=== PATIENT | female | born 1935 | race Hispanic/Latino ===

== ENCOUNTER 2018-01-10 07:13 | Inpatient (IN) | payer MEDICARE, OTHER ==
[2018-01-10] MEDS ORDERED: Albuterol-Ipratrop 3 mg / 0.5 (3 ml) UD INH STA ×2 (07:41→11:10)
[2018-01-10 08:06] LABS: BASO % 0.2 % (0.0-2.0); EOS % 0.1 % (0.0-4.0); HEMOGLOBIN 12.2 g/dL (12.0-16.0); LYMPH # 0.3 K/uL (1.0-4.3); LYMPH % 2.1 % (20.0-40.0); MEAN CELL VOLUME 96.2 fl (81.0-99.0); MEAN CORPUSCULAR HEMOGLOBIN 31.3 pg (27.0-31.0); MEAN CORPUSCULAR HGB CONC 32.6 g/dL (33.0-37.0); MEAN PLATELET VOLUME 7.9 fl (7.2-11.7); MONO # 1.3 K/uL (0.0-0.8); MONO % 8.5 % (0.0-10.0); NEUT # 13.9 K/uL (1.8-7.0); NEUT % 89.1 % (50.0-75.0); PLATELET COUNT 152 K/uL (130-400); RBC 3.88 Mil/uL (3.80-5.20); RED CELL DISTRIBUTION WIDTH 13.3 % (11.5-14.5); WHITE BLOOD COUNT 15.6 K/uL (4.8-10.8)
--- NOTE | 2018-01-10 08:13 | ED PDOC ---
HPI: SOB/CHF/COPD Time Seen by Provider: 01/10/18 07:20 Chief Complaint (Nursing): Shortness Of Breath Chief Complaint (Provider): shortness of breath History Per: Patient History/Exam Limitations: no limitations Onset/Duration Of Symptoms: Days Current Symptoms Are (Timing): Still Present Additional History Per: Family (daughter) Additional Complaint(s): 82 year old female with a history of COPD presents to the ER via EMS for an evaluation for shortness of breath onset today morning. As per daughter, patient has been coughing with phlegm for 2 weeks which has worsened since 2 days. She was seen at [facility] for radiation treatment for isolated throat lesion 3 weeks ago. Patient has good appetite and denies receiving flu shot, vomiting or diarrhea. PMD: Dr. Granados Past Medical History Reviewed: Historical Data, Nursing Documentation, Vital Signs Vital Signs: Last Vital Signs Temp 98.4 F 01/10/18 07:33 Pulse 98 H 01/10/18 07:33 Resp 28 H 01/10/18 07:37 BP 148/58 L 01/10/18 07:33 Pulse Ox 92 L 01/10/18 07:33 - Medical History PMH: COPD (USES O2 AT NIGHT), Emphysema, HTN, Hypercholesterolemia Denies: Arthritis, CHF, Hypothyroidism, Chronic Kidney Disease, Rheumatoid Arthritis - Surgical History Surgical History: Endoscopy - Family History Family History: States: Unknown Family Hx - Social History Current smoker - smoking cessation education provided: Yes (sometimes smokes cigarettes ) Alcohol: None Drugs: Denies - Home Medications Home Medications: Ambulatory Orders Medication Instructions Recorded Olmesartan/Hydrochlorothiazide 1 tab PO DAILY 11/05/15 [Benicar Hct 20-12.5 mg Tablet] Albuterol HFA [Ventolin HFA 90 2 puff IH Q6 PRN 01/10/18 mcg/actuation (8 g)] RX: Albuterol/Ipratropium [Duoneb 3 ml IH Q6 PRN 01/10/18 3 mg/0.5 mg (3 ml) UD] RX: Atorvastatin [Lipitor] 10 mg PO DAILY 01/10/18 RX: Meclizine [Antivert] 12.5 mg PO Q12 PRN 01/10/18 RX: Pramipexole [Mirapex] 0.5 mg PO HS 01/10/18 - Allergies Allergies/Adverse Reactions: Allergies Allergy/AdvReac Type Severity Reaction Status Date / Time No Known Allergies Allergy Verified 05/30/15 09:49 Curb-65 Severity Score - CURB-65 Severity Score Confusion: No Bun >19mg/dl (>7mmol/L): No Respiratory Rate greater than/equal to 30: No Systolic BP <90 or Diastolic BP less than/equal 60mmHg: No Age >64: Yes Curb-65 Score: 1 Percentage 30-day mortality: 2.7% Wells Criteria for PE - Wells Criteria for Pulmonary Embolism Clinical Signs and Symptoms of DVT: No P.E is #1 Diagnosis, or Equally Likely: No Heart Rate >100: No Immobilization at least 3 days;Surgery previous 4 weeks: No Previous, objectively diagnosed PE or DVT: No Hemoptysis: No Malignancy w/treatment within 6 months, or palliative: No Total Score: 0 Review of Systems ROS Statement: Except As Marked, All Systems Reviewed And Found Negative Constitutional: Negative for: Fever Cardiovascular: Negative for: Chest Pain Respiratory: Positive for: Cough, Shortness of Breath Gastrointestinal: Negative for: Nausea, Vomiting, Abdominal Pain, Diarrhea Physical Exam - Reviewed Nursing Documentation Reviewed: Yes Vital Signs Reviewed: Yes - Physical Exam Appears: Positive for: Non-toxic, No Acute Distress Head Exam: Positive for: ATRAUMATIC, NORMAL INSPECTION, NORMOCEPHALIC Skin: Positive for: Normal Color, Warm, Dry Eye Exam: Positive for: EOMI, Normal appearance, PERRL ENT: Positive for: Normal ENT Inspection Neck: Positive for: Normal, Painless ROM Cardiovascular/Chest: Positive for: Regular Rate, Rhythm. Negative for: Murmur Respiratory: Positive for: Wheezing (mild), Respiratory Distress (mild). Negative for: Normal Breath Sounds (decreased airflow) Gastrointestinal/Abdominal: Positive for: Normal Exam, Soft. Negative for: Tenderness Back: Positive for: Normal Inspection. Negative for: L CVA Tenderness, R CVA Tenderness Extremity: Positive for: Normal ROM. Negative for: Tenderness, Pedal Edema, Deformity Neurologic/Psych: Positive for: Alert, Oriented (x3), Other (speaking full sentences). Negative for: Motor/Sensory Deficits - Laboratory Results Result Diagrams: 01/10/18 07:44 01/10/18 07:44 - ECG O2 Sat by Pulse Oximetry: 92 (RA) Pulse Ox Interpretation: Normal Medical Decision Making Medical Decision Making: Time: 740 Initial Plan: copd exacerbation, rule out pneumonia and the flu CMP Troponin I CBC w/ Differential Chest Two Views [RAD] Albuterol 3ml SOLU-Medrol 125mg Peak Flow Pre/Post TX Influenza A B Reevaluation Patient will be admitted for COPD exacerbation will cover for possible pneumonia w zithromax and rocephin lactate1.4 Time: 1135 Provider paged hospitalist, Dr. Neal for admission who agreed to admission, and called Dr. Granados - no callback. ----- Scribe Attestation: Documented by Tj Montgomery, acting as a scribe for Ethan Pelayo MD. Provider Scribe Attestation: All medical record entries made by the Scribe were at my direction and personally dictated by me. I have reviewed the chart and agree that the record accurately reflects my personal performance of the history, physical exam, medical decision making, and the department course for this patient. I have also personally directed, reviewed, and agree with the discharge instructions and disposition. Disposition - Clinical Impression Clinical Impression: COPD with acute exacerbation - Patient ED Disposition Is Patient to be Admitted: Yes Counseled Patient/Family Regarding: Studies Performed, Diagnosis - Disposition Disposition Time: 11:25 Condition: STABLE
[2018-01-10 08:21] LABS: ALB/GLOB RATIO 1.2 (1.0-2.1); ALT/SGPT 34 U/L (9-52); AST/SGOT 36 U/L (14-36); BLOOD UREA NITROGEN 19 mg/dl (7-17); CALCIUM 8.8 mg/dL (8.4-10.2); GFR NON-AFRICAN AMERICAN > 60
[2018-01-10 09:46] LABS: LYMPHOCYTE 2 % (20-50); MONOCYTE 6 % (0-10); NEUTROPHIL 92 % (42-75); TOTAL CELLS COUNTED 100
[2018-01-10 09:47] LABS: GIANT PLATELETS PRESENT; PLATELET ESTIMATE NORMAL (NORMAL)
[2018-01-10] MEDS ORDERED: Azithromycin 500 MG in Sodium Chloride 0.9% 250 ML IVPB STA (11:32)
[2018-01-10] MEDS ORDERED: Albuterol-Ipratrop 3 mg / 0.5 (3 ml) UD ONE ×2 (11:40→16:37)
[2018-01-10] MEDS ORDERED: Azithromycin 500 MG IV IVPB ONE (11:40)
[2018-01-10] MEDS ORDERED: Sodium Chloride 3% for Inhalation 4 ML VIAL.NEB IH PRN (12:18)
[2018-01-10] MEDS ORDERED: Albuterol 0.083% Inhal Sol (2.5 mg/3 mL) UD INH PRN (12:23)
--- NOTE | 2018-01-10 12:27 | RAD ---
Date of service: 01/10/2018 HISTORY: sob rule out pneumonia COMPARISON: 06/05/2015. TECHNIQUE: Chest PA and lateral FINDINGS: LUNGS: Pulmonary vascular congestion/interstitial findings. Hyperinflation, manifestations of COPD. No active pulmonary disease. PLEURA: No significant pleural effusion identified. No pneumothorax apparent. CARDIOVASCULAR: Atherosclerotic calcifications identified primarily aortic arch. Normal cardiac size. OSSEOUS STRUCTURES: No significant abnormalities. VISUALIZED UPPER ABDOMEN: Normal. OTHER FINDINGS: None. IMPRESSION: Pulmonary vascular congestion. No focal/discrete infiltrates.
[2018-01-10] MEDS ORDERED: HYDROCHLOROTHIAZIDE PO SCH (12:30)
[2018-01-10] MEDS ORDERED: OLMESARTAN PO SCH (12:30)
[2018-01-10] MEDS ORDERED: [UNRECOGNIZED DRUG - OTHER] PO SCH (12:30)
[2018-01-10 12:32] LABS: ABG ALLEN TEST YES; ARTERIAL BLOOD GAS HCO3 29.8 mmol/L (21-28); ARTERIAL BLOOD GAS HEMOGLOBIN 12.5 g/dL (11.7-17.4); ARTERIAL BLOOD GAS O2 CAPACITY 16.8 mL/dL (16-24); ARTERIAL BLOOD GAS O2 CONTENT 16.4 ML/dL (15-23); ARTERIAL BLOOD GAS O2 SAT 97.8 % (95-98); ARTERIAL BLOOD GAS PCO2 65 mm/Hg (35-45); ARTERIAL BLOOD GAS PH 7.33 (7.35-7.45); ARTERIAL BLOOD GAS PO2 75 mm/Hg (80-100); ARTERIAL BLOOD GAS TCO2 36.3 mmol/L (22-28)
[2018-01-10] MEDS ORDERED: cefTRIAXone (Rocephin) 1 gm Inj ONE (12:59)
[2018-01-10 13:45] LABS: VENOUS BLOOD GAS BASE EXCESS 4.3 mmol/L (0.0-2.0); VENOUS BLOOD GAS PCO2 71 mmHg (40-60); VENOUS BLOOD GAS PO2 52 mm/Hg (30-55); VENOUS BLOOD PH 7.28 (7.32-7.43)
--- NOTE | 2018-01-10 13:46 | CARD ---
APPROVED REPORT Date of service: 01/10/2018 EKG Measurement Heart [id number] <Conclusion> Sinus rhythm with premature atrial complexes Nonspecific ST abnormality Abnormal ECG
[2018-01-10] MEDS ORDERED: Pantoprazole 40 mg EC Tab PO ONE (14:14)
--- NOTE | 2018-01-10 14:16 | CP.PCM.HP ---
<Gilda Arredondo - Last Filed: 01/10/18 15:05> History of Present Illness - History of Present Illness History of Present Illness: 82 y/o female w/ pmhx of COPD on 2L NC at home and HTN c/o worsening shortness of breath persisting for 2 days. She also c/o productive cough w/ yellow sputum persisting for 3 weeks, which worsened in the past two days. She denies chest pain, fevers, bloody sputum, night sweats, chills, sore throat, n/v/c/d. 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 PMD: Dr. 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 Denies having sick contacts. Denies recent travel outside [place] Allergies: NKDA HomeRx: Duoneb 3.0mg/0.5mg PRN Q6 NEB, Albuterol 90mcg IH Q6 PRN, Meclizine 12.5mg PO PRN, Benicar HCT 20/12.5 mg PO QD, Pramipexole 0.5mg PO QD, 2L Oxygen Nasal Cannula Code Status: Full Code Next of Kin: Nayely Irby, daughter, Present on Admission - Present on Admission Any Indicators Present on Admission: No History of DVT/PE: No History of Uncontrolled Diabetes: No Urinary Catheter: No Decubitus Ulcer Present: No Review of Systems - Constitutional Constitutional: absent: Fatigue, Fever, Night Sweats - EENT Eyes: absent: Change in Vision Ears: Disequilibrium. absent: Dizziness Nose/Mouth/Throat: Nasal Discharge, Hoarsness. absent: Nasal Congestion - Cardiovascular Cardiovascular: absent: Chest Pain, Dyspnea, Leg Edema, Palpitations - Respiratory Respiratory: Cough, Wheezing. absent: Hemoptysis - Gastrointestinal Gastrointestinal: absent: Abdominal Pain, Constipation, Diarrhea, Nausea, Vo miting - Genitourinary Genitourinary: absent: Dysuria - Musculoskeletal Musculoskeletal: absent: Numbness, Tingling Past Patient History - Past Medical History & Family History Past Medical History?: Yes - Past Social History Smoking Status: Current Some Days Smoker Alcohol: None Drugs: Denies - CARDIAC Hx Congestive Heart Failure: No Hx Hypercholesterolemia: Yes Hx Hypertension: Yes - PULMONARY Hx Chronic Obstructive Pulmonary Disease (COPD): Yes (USES O2 AT NIGHT) Hx Emphysema: Yes - NEUROLOGICAL HX Cerebrovascular Accident: No - HEENT Hx HEENT Problems: No - RENAL Hx Chronic Kidney Disease: No - ENDOCRINE/METABOLIC Hx Hypothyroidism: No - HEMATOLOGICAL/ONCOLOGICAL Hx Blood Disorders: No - INTEGUMENTARY Hx Dermatological Problems: No - MUSCULOSKELETAL/RHEUMATOLOGICAL Hx Arthritis: No Hx Rheumatoid Arthritis: No - GASTROINTESTINAL Hx Gastrointestinal Disorders: Yes Hx Ulcer: Yes - GENITOURINARY/GYNECOLOGICAL Hx Genitourinary Disorders: No - PSYCHIATRIC Hx Emotional Abuse: No Hx Physical Abuse: No Hx Substance Use: No - SURGICAL HISTORY Hx Surgeries: Yes - ANESTHESIA Hx Anesthesia: No Meds Allergies/Adverse Reactions: Allergies Allergy/AdvReac Type Severity Reaction Status Date / Time No Known Allergies Allergy Verified 05/30/15 09:49 Physical Exam - Constitutional Appears: No Acute Distress - Eye Exam Eye Exam: PERRL. absent: Conjunctival injection - ENT Exam ENT Exam: Mucous Membranes Moist - Respiratory Exam Respiratory Exam: Decreased Breath Sounds, Rhonchi. absent: Wheezes - Cardiovascular Exam Cardiovascular Exam: REGULAR RHYTHM, +S1, +S2 - GI/Abdominal Exam GI & Abdominal Exam: Normal Bowel Sounds, Soft. absent: Tenderness - Extremities Exam Extremities exam: Positive for: normal inspection. Negative for: calf tenderness, pedal edema, tenderness - Neurological Exam Neurological exam: Alert, Oriented x3 - Psychiatric Exam Psychiatric exam: Normal Affect - Skin Skin Exam: Dry, Normal Color, Warm Results - Vital Signs Recent Vital Signs: Last Vital Signs Temp 97.6 F 01/10/18 11:29 Pulse 88 01/10/18 11:29 Resp 20 01/10/18 11:29 BP 129/62 01/10/18 11:29 Pulse Ox 92 L 01/10/18 12:14 - Labs Result Diagrams: 01/10/18 07:44 01/10/18 07:44 Labs: Laboratory Results - last 24 hr 01/10/18 01/10/18 01/10/18 07:44 07:44 07:44 WBC 15.6 H RBC 3.88 Hgb 12.2 Hct 37.4 MCV 96.2 D MCH 31.3 H MCHC 32.6 L RDW 13.3 Plt Count 152 MPV 7.9 Neut % (Auto) 89.1 H Lymph % (Auto) 2.1 L Austin % (Auto) 8.5 Eos % (Auto) 0.1 Baso % (Auto) 0.2 Neut # (Auto) 13.9 H Lymph # (Auto) 0.3 L Austin # (Auto) 1.3 H Eos # (Auto) 0.0 Baso # (Auto) 0.0 Neutrophils % (Manual) 92 H Lymphocytes % (Manual) 2 L Monocytes % (Manual) 6 Platelet Estimate Normal Giant Platelets Present RBC Morphology Normal pCO2 pO2 HCO3 ABG pH ABG Total CO2 ABG O2 Saturation ABG O2 Content ABG Base Excess ABG Hemoglobin ABG Carboxyhemoglobin POC ABG HHb (Measured) ABG Methemoglobin ABG O2 Capacity Kermit Test VBG pH VBG pCO2 VBG HCO3 VBG Total CO2 VBG O2 Sat (Calc) VBG Base Excess VBG Potassium A-a O2 Difference Hgb O2 Saturation Glucose Lactate FiO2 Blood Gas Comments Crit Value Called To Crit Value Called By Crit Value Read Back Blood Gas Notified Time Sodium 132 Potassium 3.8 Chloride 91 L Carbon Dioxide 30 Anion Gap 15 BUN 19 H Creatinine 0.6 L Est GFR ( Amer) > 60 Est GFR (Non-Af Amer) > 60 Random Glucose 142 H Calcium 8.8 Total Bilirubin 0.5 AST 36 ALT 34 Alkaline Phosphatase 79 Troponin I 0.0130 Total Protein 7.3 Albumin 4.0 Globulin 3.3 Albumin/Globulin Ratio 1.2 Venous Blood Potassium Influenza Typ A,B (EIA) Negative for flu a/b 01/10/18 01/10/18 12:21 13:40 WBC RBC Hgb Hct MCV MCH MCHC RDW Plt Count MPV Neut % (Auto) Lymph % (Auto) Austin % (Auto) Eos % (Auto) Baso % (Auto) Neut # (Auto) Lymph # (Auto) Austin # (Auto) Eos # (Auto) Baso # (Auto) Neutrophils % (Manual) Lymphocytes % (Manual) Monocytes % (Manual) Platelet Estimate Giant Platelets RBC Morphology pCO2 65 H pO2 75 L 52 HCO3 29.8 H ABG pH 7.33 L ABG Total CO2 36.3 H ABG O2 Saturation 97.8 ABG O2 Content 16.4 ABG Base Excess 6.4 H ABG Hemoglobin 12.5 ABG Carboxyhemoglobin 3.0 H POC ABG HHb (Measured) 2.1 ABG Methemoglobin 1.8 ABG O2 Capacity 16.8 Kermit Test Yes VBG pH 7.28 L VBG pCO2 71 H* VBG HCO3 27.9 VBG Total CO2 35.6 H VBG O2 Sat (Calc) 90.2 H VBG Base Excess 4.3 H VBG Potassium 4.0 A-a O2 Difference 58.0 Hgb O2 Saturation 93.0 L Glucose 226 H Lactate 1.4 FiO2 30.0 21.0 Blood Gas Comments 2l/m nc Crit Value Called To Rn. gurwinder cormier Crit Value Called By 23 Crit Value Read Back N Y Blood Gas Notified Time 1345 Sodium 129.0 L Potassium Chloride 92.0 L Carbon Dioxide Anion Gap BUN Creatinine Est GFR ( Amer) Est GFR (Non-Af Amer) Random Glucose Calcium Total Bilirubin AST ALT Alkaline Phosphatase Troponin I Total Protein Albumin Globulin Albumin/Globulin Ratio Venous Blood Potassium 4.0 Influenza Typ A,B (EIA) Assessment & Plan - Assessment and Plan (Free Text) Assessment: 82 y/o female w/ pmhx of COPD on 2L NC at home and HTN admitted for COPD exacerb ation. COPD Exacerbation Admit to telemetry PC02 65, pO2 75, ABG pH 7.33 ABG C02 36.3 on admission RR: 28, SpO2 94 on admission CXR: Pulmonary vascular congestion, no infiltrates. Hyperinflation, manifestations of COPD. No active pulmonary disease. s/p Solu-Medrol 125mg PO x 1 in the ER Start Albuterol 2.5mg INH RQ4 PRN, Duoneb 3mg/0.5mg Q6, SoluMedrol 40mg IVP Q6 2L O2 Nasal Cannula NaCl- 4mL IH PRN ECHO and pro-BNP ordered to r/o CHF Pulmo consulted, appreciate recs Leukocytosis WBC 15.6 Patient is afebrile Negative Influenza A/B ag Blood culture and sputum cultures ordered Start Azithromycin 500mg IV QD and Ceftriazone 1gm IVPB QD Follow CBC in AM Hypertension Chronic, controlled Losartan 50mg PO QD and HCTZ 12.5mg PO QD DVT prophylaxis: Lovenox 40mg SC QD Diet Heart Healthy Case discussed w/ attending, Dr. Neal. - Date & Time Date: 01/10/18 Time: 14:00 <Gianfranco Neal D - Last Filed: 01/10/18 20:10> Results - Vital Signs Recent Vital Signs: Last Vital Signs Temp 98 F 01/10/18 18:25 Pulse 84 01/10/18 19:05 Resp 18 01/10/18 18:25 BP 137/56 L 01/10/18 18:25 Pulse Ox 93 L 01/10/18 18:25 - Labs Result Diagrams: 01/10/18 07:44 01/10/18 07:44 Labs: Laboratory Results - last 24 hr 01/10/18 01/10/18 01/10/18 07:44 07:44 07:44 WBC 15.6 H RBC 3.88 Hgb 12.2 Hct 37.4 MCV 96.2 D MCH 31.3 H MCHC 32.6 L RDW 13.3 Plt Count 152 MPV 7.9 Neut % (Auto) 89.1 H Lymph % (Auto) 2.1 L Austin % (Auto) 8.5 Eos % (Auto) 0.1 Baso % (Auto) 0.2 Neut # (Auto) 13.9 H Lymph # (Auto) 0.3 L Austin # (Auto) 1.3 H Eos # (Auto) 0.0 Baso # (Auto) 0.0 Neutrophils % (Manual) 92 H Lymphocytes % (Manual) 2 L Monocytes % (Manual) 6 Platelet Estimate Normal Giant Platelets Present RBC Morphology Normal pCO2 pO2 HCO3 ABG pH ABG Total CO2 ABG O2 Saturation ABG O2 Content ABG Base Excess ABG Hemoglobin ABG Carboxyhemoglobin POC ABG HHb (Measured) ABG Methemoglobin ABG O2 Capacity Kermit Test VBG pH VBG pCO2 VBG HCO3 VBG Total CO2 VBG O2 Sat (Calc) VBG Base Excess VBG Potassium A-a O2 Difference Hgb O2 Saturation Glucose Lactate FiO2 Blood Gas Comments Crit Value Called To Crit Value Called By Crit Value Read Back Blood Gas Notified Time Sodium 132 Potassium 3.8 Chloride 91 L Carbon Dioxide 30 Anion Gap 15 BUN 19 H Creatinine 0.6 L Est GFR ( Amer) > 60 Est GFR (Non-Af Amer) > 60 Random Glucose 142 H Calcium 8.8 Total Bilirubin 0.5 AST 36 ALT 34 Alkaline Phosphatase 79 Troponin I 0.0130 NT-Pro-B Natriuret Pep Total Protein 7.3 Albumin 4.0 Globulin 3.3 Albumin/Globulin Ratio 1.2 Venous Blood Potassium Influenza Typ A,B (EIA) Negative for flu a/b 01/10/18 01/10/18 01/10/18 12:21 13:40 14:30 WBC RBC Hgb Hct MCV MCH MCHC RDW Plt Count MPV Neut % (Auto) Lymph % (Auto) Austin % (Auto) Eos % (Auto) Baso % (Auto) Neut # (Auto) Lymph # (Auto) Austin # (Auto) Eos # (Auto) Baso # (Auto) Neutrophils % (Manual) Lymphocytes % (Manual) Monocytes % (Manual) Platelet Estimate Giant Platelets RBC Morphology pCO2 65 H pO2 75 L 52 HCO3 29.8 H ABG pH 7.33 L ABG Total CO2 36.3 H ABG O2 Saturation 97.8 ABG O2 Content 16.4 ABG Base Excess 6.4 H ABG Hemoglobin 12.5 ABG Carboxyhemoglobin 3.0 H POC ABG HHb (Measured) 2.1 ABG Methemoglobin 1.8 ABG O2 Capacity 16.8 Kermit Test Yes VBG pH 7.28 L VBG pCO2 71 H* VBG HCO3 27.9 VBG Total CO2 35.6 H VBG O2 Sat (Calc) 90.2 H VBG Base Excess 4.3 H VBG Potassium 4.0 A-a O2 Difference 58.0 Hgb O2 Saturation 93.0 L Glucose 226 H Lactate 1.4 FiO2 30.0 21.0 Blood Gas Comments 2l/m nc Crit Value Called To Rn. gurwinder cormier Crit Value Called By 23 Crit Value Read Back N Y Blood Gas Notified Time 1345 Sodium 129.0 L Potassium Chloride 92.0 L Carbon Dioxide Anion Gap BUN Creatinine Est GFR ( Amer) Est GFR (Non-Af Amer) Random Glucose Calcium Total Bilirubin AST ALT Alkaline Phosphatase Troponin I NT-Pro-B Natriuret Pep 355 Total Protein Albumin Globulin Albumin/Globulin Ratio Venous Blood Potassium 4.0 Influenza Typ A,B (EIA) Attending/Attestation - Attestation I have personally seen and examined this patient.: Yes I have fully participated in the care of the patient.: Yes I have reviewed all pertinent clinical information: Yes Notes (Text): 01/10/18 20:09 Patient seen and examined with resident. Case discussed and agreed with assessment and plan of management.
[2018-01-10] MEDS: Pantoprazole 40 mg EC Tab PO SCH (14:26)
[2018-01-10] MEDS ORDERED: methylPREDNISolone 40 MG in Sodium Chloride 0.9% 50 ML IVPB SCH (16:00)
[2018-01-10] MEDS ORDERED: Albuterol-Ipratrop 3 mg / 0.5 (3 ml) UD IH SCH (16:00)
[2018-01-10] MEDS ORDERED: MethylPREDNISolone 40 mg Vial ONE (16:38)
[2018-01-10] MEDS: MethylPREDNISolone 40 mg Vial IVP SCH ×2 (16:40→23:28)
[2018-01-11] MEDS: Albuterol-Ipratrop 3 mg / 0.5 (3 ml) UD IH SCH ×5 (01:00→19:00)
[2018-01-11] MEDS: MethylPREDNISolone 40 mg Vial IVP SCH ×4 (03:29→21:21)
[2018-01-11 05:43] LABS: HEMOGLOBIN 11.3 g/dL (12.0-16.0); LYMPH # 0.3 K/uL (1.0-4.3); LYMPH % 2.3 % (20.0-40.0); MEAN CELL VOLUME 95.7 fl (81.0-99.0); MEAN CORPUSCULAR HEMOGLOBIN 31.7 pg (27.0-31.0); MEAN CORPUSCULAR HGB CONC 33.1 g/dL (33.0-37.0); MONO # 0.4 K/uL (0.0-0.8); MONO % 3.3 % (0.0-10.0); NEUT # 10.4 K/uL (1.8-7.0); NEUT % 94.4 % (50.0-75.0); PLATELET COUNT 158 K/uL (130-400); RBC 3.56 Mil/uL (3.80-5.20); RED CELL DISTRIBUTION WIDTH 13.3 % (11.5-14.5)
[2018-01-11 05:54] LABS: BLOOD UREA NITROGEN 21 mg/dl (7-17); CALCIUM 8.6 mg/dL (8.4-10.2); GFR NON-AFRICAN AMERICAN > 60
--- NOTE | 2018-01-11 06:56 | CP.PCM.PN ---
<ArnulfoGilda - Last Filed: 01/11/18 11:20> Subjective - Date & Time of Evaluation Date of Evaluation: 01/11/18 Time of Evaluation: 06:56 - Subjective Subjective: Patient seen and examined at bedside, sitting up, breathing comfortably on O2 NC. She denies SOB or any acute events over night. She continues to report productive cough with yellow sputum. Patient's charts, labs, and nurse notes reviewed. Objective - Vital Signs/Intake and Output Vital Signs (last 24 hours): Temp Pulse Resp BP Pulse Ox 98.1 F 77 20 113/62 94 L 01/11/18 05:05 01/11/18 05:05 01/11/18 05:05 01/11/18 05:05 01/11/18 05:05 Intake and Output: 01/10/18 01/11/18 18:59 06:59 Intake Total 1260 Balance 1260 - Medications Medications: Current Medications Acetaminophen (Tylenol 325mg Tab) 650 mg PO Q6 PRN PRN Reason: Other Last Admin: 01/10/18 23:20 Dose: 650 mg Albuterol Sulfate (Albuterol 0.083% Inhal Deborah (2.5 Mg/3 Ml) Ud) 2.5 mg INH RQ4 PRN PRN Reason: Shortness of Breath Albuterol/Ipratropium (Duoneb 3 Mg/0.5 Mg (3 Ml) Ud) 3 ml IH RQ6 DURAN Last Admin: 01/11/18 01:00 Dose: 3 ml Atorvastatin Calcium (Lipitor) 10 mg PO DAILY DURAN Last Admin: 01/10/18 14:26 Dose: 10 mg Docusate Sodium (Colace) 100 mg PO BID PRN PRN Reason: Constipation Enoxaparin Sodium (Lovenox) 40 mg SC DAILY DURAN; Protocol Hydrochlorothiazide (Microzide) 12.5 mg PO DAILY DURAN Last Admin: 01/10/18 14:25 Dose: 12.5 mg Ceftriaxone Sodium 1 gm/ (Sodium Chloride) 100 mls @ 100 mls/hr IVPB DAILY DURAN; Protocol Azithromycin 500 mg/ Sodium (Chloride) 250 mls @ 250 mls/hr IVPB DAILY DURAN; Protocol Losartan Potassium (Cozaar) 50 mg PO DAILY DURAN Last Admin: 01/10/18 14:26 Dose: 50 mg Meclizine HCl (Antivert) 12.5 mg PO Q12 PRN PRN Reason: Dizziness Methylprednisolone (Solu-Medrol) 40 mg IVP Q6 [facility] Last Admin: 01/11/18 03:29 Dose: 40 mg Pantoprazole Sodium (Protonix Ec Tab) 40 mg PO DAILY [facility] Last Admin: 01/10/18 14:26 Dose: 40 mg Pramipexole Dihydrochloride (Mirapex) 0.5 mg PO HS [facility] - Labs Labs: 01/11/18 04:25 01/11/18 04:25 - Constitutional Appears: No Acute Distress - Respiratory Exam Respiratory Exam: Decreased Breath Sounds, Prolonged Expiratory Phase, Rales, Rhonchi. absent: Accessory Muscle Use - Cardiovascular Exam Cardiovascular Exam: REGULAR RHYTHM, +S1, +S2 - GI/Abdominal Exam GI & Abdominal Exam: Soft. absent: Tenderness - Extremities Exam Extremities Exam: Normal Inspection. absent: Calf Tenderness, Pedal Edema - Psychiatric Exam Psychiatric exam: Normal Affect - Skin Skin Exam: Dry, Intact, Warm Assessment and Plan - Assessment and Plan (Free Text) Assessment: 82 y/o female w/ pmhx of COPD (on 2L NC at home at night) and HTN admitted for COPD exacerbation. She was given Solu-Medrol 125mg PO x 1 in the ER, and started on 2-3L O2 NC, Albuterol 2.5mg INH RQ4 PRN, Duoneb 3mg/0.5mg Q6, SoluMedrol 40mg IVP Q6 on the floor. CXR: Pulmonary vascular congestion, no infiltrates. Hyperinflation, manifestations of COPD. No active pulmonary disease. She c/o productive cough, and was found to have leukocytosis. She was started on Azithromycin 500mg IV QD and Ceftriazone 1gm IVPB QD. COPD Exacerbation PC02 65, pO2 75, ABG pH 7.33 ABG C02 36.3 on admission RR: 28, SpO2 94 on admission CXR: Pulmonary vascular congestion, no infiltrates. Hyperinflation, manifestations of COPD. No active pulmonary disease. s/p Solu-Medrol 125mg PO x 1 in the ER Cont w/ Albuterol 2.5mg INH RQ4 PRN, Duoneb 3mg/0.5mg Q6, SoluMedrol 40mg IVP Q6 2L O2 Nasal Cannula NaCl- 4mL IH PRN ECHO 01/10/2019 LVEF 60-65% pro-BNP wnl Pulmo consulted, appreciate recs; discussed case w/ Dr. Granados Leukocytosis improving WBC 15.6 -->11.1 Patient is afebrile Negative Influenza A/B ag Blood culture and sputum cultures ordered Continue Azithromycin 500mg IV QD and Ceftriazone 1gm IVPB QD Follow CBC in AM Hypertension Chronic, controlled Losartan 50mg PO QD and HCTZ 12.5mg PO QD DVT prophylaxis: Lovenox 40mg SC QD Diet Heart Healthy <Lexi Benedict - Last Filed: 01/11/18 16:57> Objective - Vital Signs/Intake and Output Vital Signs (last 24 hours): Temp Pulse Resp BP Pulse Ox 97.7 F 77 20 122/64 94 L 01/11/18 15:56 01/11/18 15:56 01/11/18 15:56 01/11/18 15:56 01/11/18 15:56 Intake and Output: 01/11/18 01/11/18 06:59 18:59 Intake Total 1260 Balance 1260 - Medications Medications: Current Medications Acetaminophen (Tylenol 325mg Tab) 650 mg PO Q6 PRN PRN Reason: Other Last Admin: 01/10/18 23:20 Dose: 650 mg Albuterol Sulfate (Albuterol 0.083% Inhal Deborah (2.5 Mg/3 Ml) Ud) 2.5 mg INH RQ4 PRN PRN Reason: Shortness of Breath Albuterol/Ipratropium (Duoneb 3 Mg/0.5 Mg (3 Ml) Ud) 3 ml IH RQ6 DURAN Last Admin: 01/11/18 13:06 Dose: 3 ml Atorvastatin Calcium (Lipitor) 10 mg PO DAILY DURAN Last Admin: 01/11/18 09:33 Dose: 10 mg Docusate Sodium (Colace) 100 mg PO BID PRN PRN Reason: Constipation Enoxaparin Sodium (Lovenox) 40 mg SC DAILY DURAN; Protocol Last Admin: 01/11/18 09:34 Dose: 40 mg Hydrochlorothiazide (Microzide) 12.5 mg PO DAILY DURAN Last Admin: 01/11/18 09:33 Dose: 12.5 mg Ceftriaxone Sodium 1 gm/ (Sodium Chloride) 100 mls @ 100 mls/hr IVPB DAILY DURAN; Protocol Last Admin: 01/11/18 09:32 Dose: 100 mls/hr Azithromycin 500 mg/ Sodium (Chloride) 250 mls @ 250 mls/hr IVPB DAILY DURAN; Protocol Last Admin: 01/11/18 09:32 Dose: 250 mls/hr Losartan Potassium (Cozaar) 50 mg PO DAILY DURAN Last Admin: 01/11/18 09:33 Dose: 50 mg Meclizine HCl (Antivert) 12.5 mg PO Q12 PRN PRN Reason: Dizziness Methylprednisolone (Solu-Medrol) 40 mg IVP Q6 DURAN Last Admin: 01/11/18 12:39 Dose: 40 mg Pantoprazole Sodium (Protonix Ec Tab) 40 mg PO DAILY DURAN Last Admin: 01/11/18 09:32 Dose: 40 mg Pramipexole Dihydrochloride (Mirapex) 0.5 mg PO HS DURAN - Labs Labs: 01/11/18 04:25 01/11/18 04:25 Attending/Attestation - Attestation I have personally seen and examined this patient.: Yes I have fully participated in the care of the patient.: Yes I have reviewed all pertinent clinical information, including history, physical exam and plan: Yes Notes (Text): COPD exacerbation Acute Bronchitis vs Early Pneumonia HTN - Pt still with SOB but better, decreased BS min rales right base - Pt came with leukocytosis and cough for the past 1 wk, continue IV ceftriaxone and Azithro - changed Albuterol inhaler to Duoneb RTC and prn - taper Solumedrol in am to 60 mg q 8 - cont HCTZ
--- NOTE | 2018-01-11 08:41 | CARD ---
APPROVED REPORT Date of service: 01/10/2018 EXAM: Two-dimensional and M-mode echocardiogram with Doppler and color Doppler. Other Information Quality : AverageRhythm : NSR INDICATION COPD Pulmonary Congestion 2D DIMENSIONS IVSd0.84 (0.7-1.1cm)LVDd3.77 (3.9-5.9cm) LVOT Diameter2.07 (1.8-2.4cm)PWd0.77 (0.7-1.1cm) IVSs1.08 (0.8-1.2cm)LVDs2.62 (2.5-4.0cm) FS (%) 30.6 %PWs0.91 (0.8-1.2cm) M-Mode DIMENSIONS Left Atrium (MM)3.09 (2.5-4.0cm)IVSd0.97 (0.7-1.1cm) Aortic Root2.40 (2.2-3.7cm)LVDd4.85 (4.0-5.6cm) Aortic Cusp Exc.1.49 (1.5-2.0cm)PWd0.88 (0.7-1.1cm) IVSs0.94 cmFS (%) 26 % LVDs3.58 (2.0-3.8cm)PWs1.02 cm Aortic Valve AoV Peak Ypcbfutd318.3cm/sAoV VTI50.5cmAO Peak GR.25mmHg LVOT Peak Fkajyxng372.3cm/sLVOT VTI27.61cmAO Mean GR.13mmHg VALERY (VMAX)0.93ig3CQC (VTI)1.17cm2 Mitral Valve MV E Hmkzsyws683.0cm/sMV DECEL [id number] A Qmczjqnl317.2cm/s MV ZAR36vdI/A ratio0.9MVA (PHT)2.73cm2 TDI Lateral E' Peak V9.29cm/sMedial E' Peak V5.62cm/sE/Lateral E'10.8 E/Medial E'17.8 Tricuspid Valve TR Peak Xuczrhrd649tr/sRAP PKVFFXZL41hjGjAS Peak Gr.44mmHg WWJU12dnMl LEFT VENTRICLE The left ventricle is normal size. There is normal left ventricular wall thickness. The left ventricular function is normal. LVEF is 60-65%. There was a mild flattening of IV septum, indicating elevated RV pressures. There is normal LV segmental wall motion. Transmitral Doppler flow pattern is Grade I-abnormal relaxation pattern. RIGHT VENTRICLE The right ventricle is normal size. The right ventricle is mildly hypertrophied. The right ventricular systolic function is normal. ATRIA The left atrium size is normal. The right atrium is mildly dilated. AORTIC VALVE The aortic valve is mildly thickened. No aortic regurgitation is present. There was a mild pressure gradient of 25 mmHg and mean pressure gradient of 12 mmHg. MITRAL VALVE The mitral valve is normal in structure. There is no evidence of mitral valve prolapse. There is no mitral valve stenosis. Mitral regurgitation is trace. TRICUSPID VALVE The tricuspid valve is normal in structure. There is mild to moderate tricuspid regurgitation. Right ventricular systolic pressure is estimated at 56 mmHg. There is moderate-severe pulmonary hypertension. PULMONIC VALVE The pulmonary valve is normal in structure. There is no pulmonic valvular regurgitation. GREAT VESSELS The aortic root is normal in size. The IVC is dilated. PERICARDIAL EFFUSION The pericardium appears normal. <Conclusion> The left ventricle is normal size. LVEF is 60-65%. There is normal LV segmental wall motion. Transmitral Doppler flow pattern is Grade I-abnormal relaxation pattern. The right ventricle is mildly hypertrophied. The right ventricular systolic function is normal. The right atrium is mildly dilated. The aortic valve is mildly thickened. There was a mild pressure gradient of 25 mmHg and mean pressure gradient of 12 mmHg. There is moderate-severe pulmonary hypertension.
[2018-01-11] MEDS: Pantoprazole 40 mg EC Tab PO SCH (09:32)
[2018-01-11] MEDS: Azithromycin 500 MG in Sodium Chloride 0.9% 250 ML IVPB SCH (09:32)
[2018-01-11] MEDS: Enoxaparin 40 mg Syringe SC SCH (09:34)
--- NOTE | 2018-01-11 10:21 | CP.PCM.CON ---
Past Patient History - Past Medical History & Family History Past Medical History?: Yes - Past Social History Smoking Status: Current Some Days Smoker - CARDIAC Hx Cardiac Disorders: Yes - PULMONARY Hx Respiratory Disorders: Yes - NEUROLOGICAL HX Cerebrovascular Accident: No - HEENT Hx HEENT Problems: No - RENAL Hx Chronic Kidney Disease: No - ENDOCRINE/METABOLIC Hx Hypothyroidism: No - HEMATOLOGICAL/ONCOLOGICAL Hx Blood Disorders: No - INTEGUMENTARY Hx Dermatological Problems: No - MUSCULOSKELETAL/RHEUMATOLOGICAL Hx Arthritis: No Hx Falls: No Hx Rheumatoid Arthritis: No - GASTROINTESTINAL Hx Gastrointestinal Disorders: Yes Hx Ulcer: Yes - GENITOURINARY/GYNECOLOGICAL Hx Genitourinary Disorders: No - PSYCHIATRIC Hx Emotional Abuse: No Hx Physical Abuse: No Hx Substance Use: No - SURGICAL HISTORY Hx Surgeries: Yes - ANESTHESIA Hx Anesthesia: No Meds Allergies/Adverse Reactions: Allergies Allergy/AdvReac Type Severity Reaction Status Date / Time No Known Allergies Allergy Verified 05/30/15 09:49 - Medications Medications: Current Medications Acetaminophen (Tylenol 325mg Tab) 650 mg PO Q6 PRN PRN Reason: Other Last Admin: 01/10/18 23:20 Dose: 650 mg Albuterol Sulfate (Albuterol 0.083% Inhal Deborah (2.5 Mg/3 Ml) Ud) 2.5 mg INH RQ4 PRN PRN Reason: Shortness of Breath Albuterol/Ipratropium (Duoneb 3 Mg/0.5 Mg (3 Ml) Ud) 3 ml IH RQ6 [facility] Last Admin: 01/11/18 07:38 Dose: 3 ml Atorvastatin Calcium (Lipitor) 10 mg PO DAILY [facility] Last Admin: 01/11/18 09:33 Dose: 10 mg Docusate Sodium (Colace) 100 mg PO BID PRN PRN Reason: Constipation Enoxaparin Sodium (Lovenox) 40 mg SC DAILY [facility]; Protocol Last Admin: 01/11/18 09:34 Dose: 40 mg Hydrochlorothiazide (Microzide) 12.5 mg PO DAILY [facility] Last Admin: 01/11/18 09:33 Dose: 12.5 mg Ceftriaxone Sodium 1 gm/ (Sodium Chloride) 100 mls @ 100 mls/hr IVPB DAILY [facility]; Protocol Last Admin: 01/11/18 09:32 Dose: 100 mls/hr Azithromycin 500 mg/ Sodium (Chloride) 250 mls @ 250 mls/hr IVPB DAILY [facility]; Protocol Last Admin: 01/11/18 09:32 Dose: 250 mls/hr Losartan Potassium (Cozaar) 50 mg PO DAILY [facility] Last Admin: 01/11/18 09:33 Dose: 50 mg Meclizine HCl (Antivert) 12.5 mg PO Q12 PRN PRN Reason: Dizziness Methylprednisolone (Solu-Medrol) 40 mg IVP Q6 [facility] Last Admin: 01/11/18 03:29 Dose: 40 mg Pantoprazole Sodium (Protonix Ec Tab) 40 mg PO DAILY [facility] Last Admin: 01/11/18 09:32 Dose: 40 mg Pramipexole Dihydrochloride (Mirapex) 0.5 mg PO HS [facility] Results - Vital Signs Recent Vital Signs: Last Vital Signs Temp 98.2 F 01/11/18 08:26 Pulse 82 01/11/18 09:33 Resp 18 01/11/18 08:26 BP 106/54 L 01/11/18 09:33 Pulse Ox 96 01/11/18 08:26 - Labs Result Diagrams: 01/11/18 04:25 01/11/18 04:25 Labs: Laboratory Results - last 24 hr 01/10/18 01/10/18 01/10/18 12:21 13:40 14:30 WBC RBC Hgb Hct MCV MCH MCHC RDW Plt Count MPV Neut % (Auto) Lymph % (Auto) Steele % (Auto) Eos % (Auto) Baso % (Auto) Neut # (Auto) Lymph # (Auto) Steele # (Auto) Eos # (Auto) Baso # (Auto) pCO2 65 H pO2 75 L 52 HCO3 29.8 H ABG pH 7.33 L ABG Total CO2 36.3 H ABG O2 Saturation 97.8 ABG O2 Content 16.4 ABG Base Excess 6.4 H ABG Hemoglobin 12.5 ABG Carboxyhemoglobin 3.0 H POC ABG HHb (Measured) 2.1 ABG Methemoglobin 1.8 ABG O2 Capacity 16.8 Kermit Test Yes VBG pH 7.28 L VBG pCO2 71 H* VBG HCO3 27.9 VBG Total CO2 35.6 H VBG O2 Sat (Calc) 90.2 H VBG Base Excess 4.3 H VBG Potassium 4.0 A-a O2 Difference 58.0 Hgb O2 Saturation 93.0 L Sodium 129.0 L Chloride 92.0 L Glucose 226 H Lactate 1.4 FiO2 30.0 21.0 Blood Gas Comments 2l/m nc Crit Value Called To Diana. gurwinder cormier Crit Value Called By 23 Crit Value Read Back N Y Blood Gas Notified Time 1345 Potassium Carbon Dioxide Anion Gap BUN Creatinine Est GFR ( Amer) Est GFR (Non-Af Amer) Random Glucose Calcium NT-Pro-B Natriuret Pep 355 Venous Blood Potassium 4.0 01/11/18 01/11/18 04:25 04:25 WBC 11.0 H RBC 3.56 L Hgb 11.3 L Hct 34.1 MCV 95.7 MCH 31.7 H MCHC 33.1 RDW 13.3 Plt Count 158 MPV 8.0 Neut % (Auto) 94.4 H Lymph % (Auto) 2.3 L Steele % (Auto) 3.3 Eos % (Auto) 0.0 Baso % (Auto) 0.0 Neut # (Auto) 10.4 H Lymph # (Auto) 0.3 L Steele # (Auto) 0.4 Eos # (Auto) 0.0 Baso # (Auto) 0.0 pCO2 pO2 HCO3 ABG pH ABG Total CO2 ABG O2 Saturation ABG O2 Content ABG Base Excess ABG Hemoglobin ABG Carboxyhemoglobin POC ABG HHb (Measured) ABG Methemoglobin ABG O2 Capacity Kermit Test VBG pH VBG pCO2 VBG HCO3 VBG Total CO2 VBG O2 Sat (Calc) VBG Base Excess VBG Potassium A-a O2 Difference Hgb O2 Saturation Sodium 133 Chloride 91 L Glucose Lactate FiO2 Blood Gas Comments Crit Value Called To Crit Value Called By Crit Value Read Back Blood Gas Notified Time Potassium 4.5 Carbon Dioxide 34 H Anion Gap 13 BUN 21 H Creatinine 0.7 Est GFR ( Amer) > 60 Est GFR (Non-Af Amer) > 60 Random Glucose 149 H Calcium 8.6 NT-Pro-B Natriuret Pep Venous Blood Potassium Assessment & Plan - Date & Time Date: 01/11/18 Time: 10:21
[2018-01-11 11:08] LABS: EOSINOPHIL 1 % (0-7); LYMPHOCYTE 4 % (20-50); MONOCYTE 4 % (0-10); NEUTROPHIL 91 % (42-75); PLATELET ESTIMATE NORMAL (NORMAL); TOTAL CELLS COUNTED 100
[2018-01-11 11:09] LABS: HYPOCHROMIC SLIGHT; TOXIC GRANULATION PRESENT
[2018-01-12] MEDS: Albuterol-Ipratrop 3 mg / 0.5 (3 ml) UD IH SCH ×2 (01:00→07:13)
[2018-01-12 05:38] LABS: HEMOGLOBIN 11.5 g/dL (12.0-16.0); LYMPH # 0.2 K/uL (1.0-4.3); LYMPH % 1.9 % (20.0-40.0); MEAN CELL VOLUME 94.1 fl (81.0-99.0); MEAN CORPUSCULAR HEMOGLOBIN 31.2 pg (27.0-31.0); MEAN CORPUSCULAR HGB CONC 33.1 g/dL (33.0-37.0); MEAN PLATELET VOLUME 7.5 fl (7.2-11.7); MONO # 0.5 K/uL (0.0-0.8); MONO % 5.1 % (0.0-10.0); NEUT # 9.4 K/uL (1.8-7.0); NRBC % 0.1 % (0.0-0.0); PLATELET COUNT 178 K/uL (130-400); RBC 3.68 Mil/uL (3.80-5.20); RED CELL DISTRIBUTION WIDTH 12.9 % (11.5-14.5); WHITE BLOOD COUNT 10.1 K/uL (4.8-10.8)
[2018-01-12] MEDS ORDERED: MethylPREDNISolone 40 mg Vial IVP SCH (06:00)
[2018-01-12] MEDS ORDERED: methylPREDNISolone 40 MG in Sodium Chloride 0.9% 50 ML IVPB SCH (06:00)
[2018-01-12 06:16] LABS: BANDS 1 % (0-2); LYMPHOCYTE 1 % (20-50); MONOCYTE 5 % (0-10); NEUTROPHIL 92 % (42-75); PLATELET ESTIMATE NORMAL (NORMAL); REACTIVE LYMPHOCYTES 1 % (0-0); TOTAL CELLS COUNTED 100
[2018-01-12 06:17] LABS: ANISOCYTOSIS SLIGHT; HYPOCHROMIC SLIGHT
[2018-01-12] MEDS: Azithromycin 500 MG in Sodium Chloride 0.9% 250 ML IVPB SCH (08:50)
[2018-01-12] MEDS: Enoxaparin 40 mg Syringe SC SCH (08:51)
[2018-01-12] MEDS: Pantoprazole 40 mg EC Tab PO SCH (08:51)
--- NOTE | 2018-01-12 09:52 | CP.PCM.PN ---
Subjective - Date & Time of Evaluation Date of Evaluation: 01/12/18 Time of Evaluation: 09:52 - Subjective Subjective: Patient was seen on rounds in the morning on telemetry. She was observed to be sitting up in bed and appeared relatively comfortable. Congested cough was noted periodically without any sputum production. The patient did relate feeling improved from the days prior. Poor night sleep because of activity in her room and hallway. Vital signs remained stable, she continues to be afebrile. The neck is supple and trachea is midline. Breath sounds are diminished bilaterally without any discrete wheezing. Sonorous rhonchi are heard in dependent areas of both lower lobes. No bronchial breath sounds or egophony. Medium rales are heard in the lower lobes posteriorly, more right than left. Heart sounds are distant. Initial parenteral antibiotics have been changed to oral. Corticosteroid dose has been decreased by 50%. Will request a flutter valve and chest physical therapy device. Objective - Vital Signs/Intake and Output Vital Signs (last 24 hours): Temp Pulse Resp BP Pulse Ox 98.3 F 76 18 146/67 95 01/12/18 08:02 01/12/18 09:00 01/12/18 08:02 01/12/18 08:51 01/12/18 08:02 - Medications Medications: Current Medications Acetaminophen (Tylenol 325mg Tab) 650 mg PO Q6 PRN PRN Reason: Other Last Admin: 01/11/18 23:30 Dose: 650 mg Albuterol Sulfate (Albuterol 0.083% Inhal Deborah (2.5 Mg/3 Ml) Ud) 2.5 mg INH RQ4 PRN PRN Reason: Shortness of Breath Albuterol/Ipratropium (Duoneb 3 Mg/0.5 Mg (3 Ml) Ud) 3 ml INH RQID [facility] Atorvastatin Calcium (Lipitor) 10 mg PO DAILY [facility] Last Admin: 01/12/18 08:52 Dose: 10 mg Azithromycin (Zithromax) 500 mg PO DAILY [facility]; Protocol Docusate Sodium (Colace) 100 mg PO BID PRN PRN Reason: Constipation Enoxaparin Sodium (Lovenox) 40 mg SC DAILY [facility]; Protocol Last Admin: 01/12/18 08:51 Dose: 40 mg Hydrochlorothiazide (Microzide) 12.5 mg PO DAILY [facility] Last Admin: 01/12/18 08:52 Dose: 12.5 mg Methylprednisolone 30 mg/ (Sodium Chloride) 50 mls @ 100 mls/hr IV Q12 [facility] Losartan Potassium (Cozaar) 50 mg PO DAILY [facility] Last Admin: 01/12/18 08:51 Dose: 50 mg Meclizine HCl (Antivert) 12.5 mg PO Q12 PRN PRN Reason: Dizziness Pantoprazole Sodium (Protonix Ec Tab) 40 mg PO DAILY [facility] Last Admin: 01/12/18 08:51 Dose: 40 mg Pramipexole Dihydrochloride (Mirapex) 0.5 mg PO HS [facility] Last Admin: 01/11/18 21:21 Dose: 0.5 mg - Labs Labs: 01/12/18 05:10 01/11/18 04:25
[2018-01-12] MEDS: MethylPREDNISolone 40 mg Vial IVP SCH ×2 (11:03→21:38)
[2018-01-12] MEDS: Albuterol-Ipratrop 3 mg / 0.5 (3 ml) UD INH SCH ×3 (11:08→18:59)
--- NOTE | 2018-01-12 11:51 | CP.PCM.PN ---
<Gilda Arredondo - Last Filed: 01/12/18 11:48> Subjective - Date & Time of Evaluation Date of Evaluation: 01/12/18 Time of Evaluation: 10:00 - Subjective Subjective: Patient reports SOB improved. Continues to complain of cough. Denies chest pain, difficulty breathing. Patient seen and examined at bedside. Breathing improved on O2 nasal cannula. Objective - Vital Signs/Intake and Output Vital Signs (last 24 hours): Temp Pulse Resp BP Pulse Ox 98.3 F 76 18 146/67 95 01/12/18 08:02 01/12/18 09:00 01/12/18 08:02 01/12/18 08:51 01/12/18 08:02 - Medications Medications: Current Medications Acetaminophen (Tylenol 325mg Tab) 650 mg PO Q6 PRN PRN Reason: Other Last Admin: 01/11/18 23:30 Dose: 650 mg Albuterol Sulfate (Albuterol 0.083% Inhal Deborah (2.5 Mg/3 Ml) Ud) 2.5 mg INH RQ4 PRN PRN Reason: Shortness of Breath Albuterol/Ipratropium (Duoneb 3 Mg/0.5 Mg (3 Ml) Ud) 3 ml INH RQID [facility] Last Admin: 01/12/18 11:08 Dose: 3 ml Atorvastatin Calcium (Lipitor) 10 mg PO DAILY [facility] Last Admin: 01/12/18 08:52 Dose: 10 mg Azithromycin (Zithromax) 500 mg PO DAILY [facility]; Protocol Cefdinir (Omnicef) 300 mg PO BID [facility] Docusate Sodium (Colace) 100 mg PO BID PRN PRN Reason: Constipation Enoxaparin Sodium (Lovenox) 40 mg SC DAILY [facility]; Protocol Last Admin: 01/12/18 08:51 Dose: 40 mg Guaifenesin/Dextromethorphan (Mucinex-Dm 600-30 Mg) 1 tab PO BID [facility] Hydrochlorothiazide (Microzide) 12.5 mg PO DAILY [facility] Last Admin: 01/12/18 08:52 Dose: 12.5 mg Losartan Potassium (Cozaar) 50 mg PO DAILY [facility] Last Admin: 01/12/18 08:51 Dose: 50 mg Meclizine HCl (Antivert) 12.5 mg PO Q12 PRN PRN Reason: Dizziness Methylprednisolone (Solu-Medrol) 30 mg IVP Q12 [facility] Last Admin: 01/12/18 11:03 Dose: 30 mg Pantoprazole Sodium (Protonix Ec Tab) 40 mg PO DAILY [facility] Last Admin: 01/12/18 08:51 Dose: 40 mg Pramipexole Dihydrochloride (Mirapex) 0.5 mg PO HS [facility] Last Admin: 01/11/18 21:21 Dose: 0.5 mg - Labs Labs: 01/12/18 05:10 01/11/18 04:25 - Constitutional Appears: No Acute Distress - Respiratory Exam Respiratory Exam: Decreased Breath Sounds, Rhonchi. absent: Wheezes - Cardiovascular Exam Cardiovascular Exam: REGULAR RHYTHM, +S1, +S2 - GI/Abdominal Exam GI & Abdominal Exam: Soft, Normal Bowel Sounds. absent: Tenderness - Extremities Exam Extremities Exam: Normal Inspection. absent: Calf Tenderness, Pedal Edema, Tenderness - Neurological Exam Neurological Exam: Alert, Awake - Skin Skin Exam: Dry, Intact, Warm Assessment and Plan - Assessment and Plan (Free Text) Assessment: 82 y/o female w/ pmhx of COPD (on 2L NC at home at night) and HTN admitted for COPD exacerbation. She was given Solu-Medrol 125mg PO x 1 in the ER, and started on 2-3L O2 NC, Albuterol 2.5mg INH RQ4 PRN, Duoneb 3mg/0.5mg Q6, SoluMedrol 40mg IVP Q6 on the floor. CXR: Pulmonary vascular congestion, no infiltrates. Hyperinflation, manifestations of COPD. No active pulmonary disease. She c/o productive cough, and was found to have leukocytosis. She was started on Azithromycin 500mg IV QD and Ceftriazone 1gm IVPB QD. COPD Exacerbation PC02 65, pO2 75, ABG pH 7.33 ABG C02 36.3 on admission RR: 28, SpO2 94 on admission CXR: Pulmonary vascular congestion, no infiltrates. Hyperinflation, manifestations of COPD. No active pulmonary disease. s/p Solu-Medrol 125mg PO x 1 in the ER Cont w/ Albuterol 2.5mg INH RQ4 PRN, Duoneb 3mg/0.5mg Q6, taper down SoluMedrol to 30mg IV BID 2L O2 Nasal Cannula NaCl- 4mL IH PRN ECHO 01/10/2019 LVEF 60-65% pro-BNP wnl Pulmo consulted, appreciate recs; discussed case w/ Dr. Granados; recommends one more day of hospitalization Leukocytosis resolved WBC 15.6 -->11.1-->10.0 Patient is afebrile Negative Influenza A/B ag Sputum gram stain shows gram+ cocci Continue Azithromycin 500mg IV QD and Ceftriaxone 1gm IVPB QD Will need total of 7 days of abx Hypertension Chronic, controlled Losartan 50mg PO QD and HCTZ 12.5mg PO QD DVT prophylaxis: Lovenox 40mg SC QD Diet Heart Healthy <Dora BenedictLeximane Burton - Last Filed: 01/12/18 16:37> Objective - Vital Signs/Intake and Output Vital Signs (last 24 hours): Temp Pulse Resp BP Pulse Ox 97.9 F 78 22 139/64 95 01/12/18 15:54 01/12/18 15:54 01/12/18 15:54 01/12/18 15:54 01/12/18 15:54 - Medications Medications: Current Medications Acetaminophen (Tylenol 325mg Tab) 650 mg PO Q6 PRN PRN Reason: Other Last Admin: 01/11/18 23:30 Dose: 650 mg Albuterol Sulfate (Albuterol 0.083% Inhal Deborah (2.5 Mg/3 Ml) Ud) 2.5 mg INH RQ4 PRN PRN Reason: Shortness of Breath Albuterol/Ipratropium (Duoneb 3 Mg/0.5 Mg (3 Ml) Ud) 3 ml INH RQID [facility] Last Admin: 01/12/18 15:17 Dose: 3 ml Atorvastatin Calcium (Lipitor) 10 mg PO DAILY [facility] Last Admin: 01/12/18 08:52 Dose: 10 mg Azithromycin (Zithromax) 500 mg PO DAILY [facility]; Protocol Cefdinir (Omnicef) 300 mg PO BID [facility] Docusate Sodium (Colace) 100 mg PO BID PRN PRN Reason: Constipation Enoxaparin Sodium (Lovenox) 40 mg SC DAILY [facility]; Protocol Last Admin: 01/12/18 08:51 Dose: 40 mg Guaifenesin/Dextromethorphan (Mucinex-Dm 600-30 Mg) 1 tab PO BID [facility] Last Admin: 01/12/18 12:24 Dose: 1 tab Hydrochlorothiazide (Microzide) 12.5 mg PO DAILY [facility] Last Admin: 01/12/18 08:52 Dose: 12.5 mg Losartan Potassium (Cozaar) 50 mg PO DAILY [facility] Last Admin: 01/12/18 08:51 Dose: 50 mg Meclizine HCl (Antivert) 12.5 mg PO Q12 PRN PRN Reason: Dizziness Methylprednisolone (Solu-Medrol) 30 mg IVP Q12 [facility] Last Admin: 01/12/18 11:03 Dose: 30 mg Pantoprazole Sodium (Protonix Ec Tab) 40 mg PO DAILY [facility] Last Admin: 01/12/18 08:51 Dose: 40 mg Pramipexole Dihydrochloride (Mirapex) 0.5 mg PO HS [facility] Last Admin: 01/11/18 21:21 Dose: 0.5 mg - Labs Labs: 01/12/18 05:10 01/11/18 04:25 Attending/Attestation - Attestation I have personally seen and examined this patient.: Yes I have fully participated in the care of the patient.: Yes I have reviewed all pertinent clinical information, including history, physical exam and plan: Yes Notes (Text): Acute Respiratoty Insufficiency with Hypercapnea ad Hypoxemia COPD exacerbation Acute Bronchitis/ Early Bacterial Pneumonia HTN - Pt still with SOB but better - persistent cough - Pt came with leukocytosis and cough for the past 1 wk, sputum Gram stain : moderate Gram + cocci in pairs, started IV ceftriaxone and Azithro- change to PO Omnicef and PO Azithro - Duoneb RTC and prn - taper Solumedrol
[2018-01-12] MEDS: guaiFENesin-DM 600-30 mg ER Tab PO SCH ×2 (12:24→16:55)
--- NOTE | 2018-01-12 13:36 | RAD ---
Date of service: 01/12/2018 HISTORY: Shortness of breath COMPARISON: 01/10/2018 TECHNIQUE: Chest PA and lateral FINDINGS: LINES AND TUBES: None. LUNG AND PLEURA: The lungs are hyperinflated and there is peribronchial thickening with chronic changes in both lungs. No pleural effusion or pneumothorax. There is right pleural thickening. HEART AND MEDIASTINUM: The heart is not enlarged. Atherosclerotic aortic arch calcifications are present. The hilar and mediastinal contours are within normal limits. SKELETAL STRUCTURES: The bony structures are within normal limits for the patient's age. VISUALIZED UPPER ABDOMEN: Normal. OTHER FINDINGS: None. IMPRESSION: No active pulmonary disease. COPD.
[2018-01-12] MEDS: Cefdinir 300 MG CAP PO SCH (16:55)
[2018-01-12] MEDS: Acetylcysteine 10% 4 ML IH SCH (18:59)
[2018-01-12] MEDS ORDERED: methylPREDNISolone 30 MG in Sodium Chloride 0.9% 50 ML IV SCH (21:00)
[2018-01-13] MEDS: Albuterol-Ipratrop 3 mg / 0.5 (3 ml) UD INH SCH ×2 (07:43→11:46)
[2018-01-13] MEDS: Acetylcysteine 10% 4 ML IH SCH (07:43)
[2018-01-13 08:30] VITALS: RESP 18; O2SAT 95
[2018-01-13] MEDS: Enoxaparin 40 mg Syringe SC SCH (09:37)
[2018-01-13] MEDS: guaiFENesin-DM 600-30 mg ER Tab PO SCH (09:39)
[2018-01-13] MEDS: Pantoprazole 40 mg EC Tab PO SCH (09:39)
[2018-01-13] MEDS: Cefdinir 300 MG CAP PO SCH (09:39)
[2018-01-13] MEDS: MethylPREDNISolone 40 mg Vial IVP SCH (09:40)
--- NOTE | 2018-01-13 09:49 | CP.PCM.PN ---
Subjective - Date & Time of Evaluation Date of Evaluation: 01/13/18 Time of Evaluation: 09:49 Objective - Vital Signs/Intake and Output Vital Signs (last 24 hours): Temp Pulse Resp BP Pulse Ox 97.7 F 83 18 148/67 95 01/13/18 08:29 01/13/18 08:29 01/13/18 08:29 01/13/18 08:29 01/13/18 08:29 - Medications Medications: Current Medications Acetaminophen (Tylenol 325mg Tab) 650 mg PO Q6 PRN PRN Reason: Other Last Admin: 01/11/18 23:30 Dose: 650 mg Acetylcysteine (Mucomyst 10% 4ml) 2 ml IH RBID [facility] Last Admin: 01/13/18 07:43 Dose: 2 ml Albuterol Sulfate (Albuterol 0.083% Inhal Deborah (2.5 Mg/3 Ml) Ud) 2.5 mg INH RQ4 PRN PRN Reason: Shortness of Breath Albuterol/Ipratropium (Duoneb 3 Mg/0.5 Mg (3 Ml) Ud) 3 ml INH RQID [facility] Last Admin: 01/13/18 07:43 Dose: 3 ml Atorvastatin Calcium (Lipitor) 10 mg PO DAILY [facility] Last Admin: 01/12/18 08:52 Dose: 10 mg Azithromycin (Zithromax) 500 mg PO DAILY [facility]; Protocol Cefdinir (Omnicef) 300 mg PO BID [facility] Last Admin: 01/12/18 16:55 Dose: 300 mg Docusate Sodium (Colace) 100 mg PO BID PRN PRN Reason: Constipation Enoxaparin Sodium (Lovenox) 40 mg SC DAILY [facility]; Protocol Last Admin: 01/12/18 08:51 Dose: 40 mg Guaifenesin/Dextromethorphan (Mucinex-Dm 600-30 Mg) 1 tab PO BID [facility] Last Admin: 01/12/18 16:55 Dose: 1 tab Hydrochlorothiazide (Microzide) 12.5 mg PO DAILY [facility] Last Admin: 01/12/18 08:52 Dose: 12.5 mg Losartan Potassium (Cozaar) 50 mg PO DAILY [facility] Last Admin: 01/12/18 08:51 Dose: 50 mg Meclizine HCl (Antivert) 12.5 mg PO Q12 PRN PRN Reason: Dizziness Methylprednisolone (Solu-Medrol) 30 mg IVP Q12 [facility] Last Admin: 01/12/18 21:38 Dose: 30 mg Pantoprazole Sodium (Protonix Ec Tab) 40 mg PO DAILY [facility] Last Admin: 01/12/18 08:51 Dose: 40 mg Pramipexole Dihydrochloride (Mirapex) 0.5 mg PO HS [facility] Last Admin: 01/12/18 21:38 Dose: 0.5 mg - Labs Labs: 01/12/18 05:10 01/11/18 04:25
[2018-01-13 12:19] VITALS: BP 131/75; PULSE 76; TEMP 98
--- NOTE | 2018-01-13 14:21 | PQF ---
PROVIDER RESPONSE TEXT: Patient with acute copd exacerbation. Without pneumonia. REVIEWER QUERY TEXT: Clarification of Clinical Diagnostic Findings Please clarify if the diagnoses :Acute Bronchitis/ Early Bacterial Pneumonia are ruled in or ruled out? - OR: Other explanation of clinical finding 01/11 Progress note :Attending and Resident: dxs. include Acute Bronchitis vs Early Pneumonia 01/12 Progress note Attending and Resident: dxs. include: Acute Bronchitis/ Early Bacterial Pneumonia The patient's Clinical Indicators include: -- Query created by: Africa Salas on 01/13/2018 11:37 AM Electronically signed by: Matty Farooq MD 01/13/2018 2:18 PM
--- NOTE | 2018-01-13 15:32 | CP.PCM.DIS ---
Provider - Provider Date of Admission: 01/12/18 15:46 Attending physician: Gianfranco Neal MD Consults: 01/10/18 12:31 Pulmonology Consult Stat Comment: Consulting Provider: Jeff Granados Consulting Physician: Jeff Granados Reason for Consult: COPD exacerbation 01/10/18 21:50 Nursing Referral for Wound Care Routine Comment: Physician Instructions: Reason For Exam: low bertha scale Time Spent in preparation of Discharge (in minutes): 35 Diagnosis - Discharge Diagnosis (1) COPD with acute exacerbation Status: Acute Priority: Low Hospital Course - Lab Results Lab Results: Micro Results 01/10/18 11:15 Blood-Venous Blood Culture - Preliminary NO GROWTH AFTER 3 DAYS 01/10/18 11:33 Blood-Venous Blood Culture - Preliminary NO GROWTH AFTER 3 DAYS 01/10/18 13:25 Sputum Gram Stain - Final 01/10/18 13:25 Sputum Sputum Culture - Final NORMAL ORAL MAYKEL Most Recent Lab Values WBC 10.1 K/uL (4.8-10.8) 01/12/18 05:10 RBC 3.68 Mil/uL (3.80-5.20) L 01/12/18 05:10 Hgb 11.5 g/dL (12.0-16.0) L 01/12/18 05:10 Hct 34.6 % (34.0-47.0) 01/12/18 05:10 MCV 94.1 fl (81.0-99.0) 01/12/18 05:10 MCH 31.2 pg (27.0-31.0) H 01/12/18 05:10 MCHC 33.1 g/dL (33.0-37.0) 01/12/18 05:10 RDW 12.9 % (11.5-14.5) 01/12/18 05:10 Plt Count 178 K/uL (130-400) 01/12/18 05:10 MPV 7.5 fl (7.2-11.7) 01/12/18 05:10 Neut % (Auto) 93.0 % (50.0-75.0) H 01/12/18 05:10 Lymph % (Auto) 1.9 % (20.0-40.0) L 01/12/18 05:10 Scott % (Auto) 5.1 % (0.0-10.0) 01/12/18 05:10 Eos % (Auto) 0.0 % (0.0-4.0) 01/12/18 05:10 Baso % (Auto) 0.0 % (0.0-2.0) 01/12/18 05:10 Neut # (Auto) 9.4 K/uL (1.8-7.0) H 01/12/18 05:10 Lymph # (Auto) 0.2 K/uL (1.0-4.3) L 01/12/18 05:10 Scott # (Auto) 0.5 K/uL (0.0-0.8) 01/12/18 05:10 Eos # (Auto) 0.0 K/uL (0.0-0.7) 01/12/18 05:10 Baso # (Auto) 0.0 K/uL (0.0-0.2) 01/12/18 05:10 Neutrophils % (Manual) 92 % (42-75) H 01/12/18 05:10 Band Neutrophils % 1 % (0-2) 01/12/18 05:10 Lymphocytes % (Manual) 1 % (20-50) L 01/12/18 05:10 Reactive Lymphs % 1 % (0-0) H 01/12/18 05:10 Monocytes % (Manual) 5 % (0-10) 01/12/18 05:10 Eosinophils % (Manual) 1 % (0-7) 01/11/18 04:25 Toxic Granulation Present 01/11/18 04:25 Platelet Estimate Normal (NORMAL) 01/12/18 05:10 Giant Platelets Present 01/10/18 07:44 RBC Morphology Normal (NORMAL) 01/10/18 07:44 Hypochromasia (manual) Slight 01/12/18 05:10 Anisocytosis (manual) Slight 01/12/18 05:10 pCO2 65 mm/Hg (35-45) H 01/10/18 12:21 pO2 52 mm/Hg (30-55) 01/10/18 13:40 HCO3 29.8 mmol/L (21-28) H 01/10/18 12:21 ABG pH 7.33 (7.35-7.45) L 01/10/18 12:21 ABG Total CO2 36.3 mmol/L (22-28) H 01/10/18 12:21 ABG O2 Saturation 97.8 % (95-98) 01/10/18 12:21 ABG O2 Content 16.4 ML/dL (15-23) 01/10/18 12:21 ABG Base Excess 6.4 mmol/L (-2.0-3.0) H 01/10/18 12:21 ABG Hemoglobin 12.5 g/dL (11.7-17.4) 01/10/18 12:21 ABG Carboxyhemoglobin 3.0 % (0.5-1.5) H 01/10/18 12:21 POC ABG HHb (Measured) 2.1 % (0.0-5.0) 01/10/18 12:21 ABG Methemoglobin 1.8 % (0.0-3.0) 01/10/18 12:21 ABG O2 Capacity 16.8 mL/dL (16-24) 01/10/18 12:21 Kermit Test Yes 01/10/18 12:21 VBG pH 7.28 (7.32-7.43) L 01/10/18 13:40 VBG pCO2 71 mmHg (40-60) H* 01/10/18 13:40 VBG HCO3 27.9 mmol/L 01/10/18 13:40 VBG Total CO2 35.6 mmol/L (22-28) H 01/10/18 13:40 VBG O2 Sat (Calc) 90.2 % (40-65) H 01/10/18 13:40 VBG Base Excess 4.3 mmol/L (0.0-2.0) H 01/10/18 13:40 VBG Potassium 4.0 mmol/L (3.6-5.2) 01/10/18 13:40 A-a O2 Difference 58.0 mm/Hg 01/10/18 12: Hgb O2 Saturation 93.0 % (95.0-98.0) L 01/10/18 12:21 Sodium 129.0 mmol/L (132-148) L 01/10/18 13:40 Chloride 92.0 mmol/L (98-107) L 01/10/18 13:40 Glucose 226 mg/dL (65-105) H 01/10/18 13:40 Lactate 1.4 mmol/L (0.7-2.1) 01/10/18 13:40 FiO2 21.0 % 01/10/18 13:40 Blood Gas Comments 2l/m nc 01/10/18 12:21 Crit Value Called To Rn. gurwinder cormier 01/10/18 13:40 Crit Value Called By 23 01/10/18 13:40 Crit Value Read Back Y 01/10/18 13:40 Blood Gas Notified Time 1345 01/10/18 13:40 Sodium 133 mmol/l (132-148) 01/11/18 04:25 Potassium 4.5 MMOL/L (3.6-5.0) 01/11/18 04:25 Chloride 91 mmol/L (98-107) L 01/11/18 04:25 Carbon Dioxide 34 mmol/L (22-30) H 01/11/18 04:25 Anion Gap 13 (10-20) 01/11/18 04:25 BUN 21 mg/dl (7-17) H 01/11/18 04:25 Creatinine 0.7 mg/dl (0.7-1.2) 01/11/18 04:25 Est GFR ( Amer) > 60 01/11/18 04:25 Est GFR (Non-Af Amer) > 60 01/11/18 04:25 Random Glucose 149 mg/dL (65-105) H 01/11/18 04:25 Calcium 8.6 mg/dL (8.4-10.2) 01/11/18 04:25 Total Bilirubin 0.5 mg/dl (0.2-1.3) 01/10/18 07:44 AST 36 U/L (14-36) 01/10/18 07:44 ALT 34 U/L (9-52) 01/10/18 07:44 Alkaline Phosphatase 79 U/L (38-126) 01/10/18 07:44 Troponin I 0.0130 ng/mL (0.00-0.120) 01/10/18 07:44 NT-Pro-B Natriuret Pep 355 pg/ml (0-900) 01/10/18 14:30 Total Protein 7.3 G/DL (6.3-8.2) 01/10/18 07:44 Albumin 4.0 g/dL (3.5-5.0) 01/10/18 07:44 Globulin 3.3 gm/dL (2.2-3.9) 01/10/18 07:44 Albumin/Globulin Ratio 1.2 (1.0-2.1) 01/10/18 07:44 Venous Blood Potassium 4.0 mmol/L (3.6-5.2) 01/10/18 13:40 Influenza Typ A,B (EIA) Negative for flu a/b (NEGATIVE) 01/10/18 07:44 - Hospital Course Hospital Course: 82 y/o female w/ pmhx of COPD (on 2L NC at home at night) and HTN admitted for COPD exacerbation. She was treated w/ Solu-Medrol 125mg PO x 1 in the ER, and started on 2-3L O2 NC, Albuterol 2.5mg INH RQ4 PRN, Duoneb 3mg/0.5mg Q6, SoluMedrol 40mg IVP Q6 on the floor, which was tapered down gradually. CXR showed ulmonary vascular congestion, no infiltrates. Hyperinflation, manifestations of COPD. No active pulmonary disease. She c/o productive cough, and was found to have leukocytosis. Pulmonology, Dr. Granados, was consulted. She was given Azithromycin 500mg IV QD and Ceftriazone 1gm IVPB QD for 3 days, leukocytosis resolved, breathing/cough improved, and she was discharged to home on Omnicef 300mg PO BID for 4 more days. Patient also discharged w/ a flutter valve and prednisone taper: 4 tabs on days 1-3 3 tabs on days 4-6 2 tabs on days 7-9 1 tab on days 10-12 Discharge Exam - Head Exam Head Exam: ATRAUMATIC, NORMAL INSPECTION, NORMOCEPHALIC - ENT Exam ENT Exam: Mucous Membranes Moist - Respiratory Exam Respiratory Exam: absent: Rales, Rhonchi, Wheezes, Respiratory Distress Additional comments: decreased airway entry, improved - Cardiovascular Exam Cardiovascular Exam: REGULAR RHYTHM, +S1, +S2 - Neurological Exam Neurological exam: Alert, Oriented x3 - Psychiatric Exam Psychiatric exam: Normal Affect - Skin Skin Exam: Dry, Warm Discharge Plan - Discharge Medications Prescriptions: Cefdinir [Omnicef] 300 mg PO BID 4 Days #8 cap Prednisone 10 mg PO DAILY 12 Days #30 tab.ds.pk - Follow Up Plan Condition: STABLE Disposition: HOME/ ROUTINE Instructions: Exacerbation of COPD (DC) Additional Instructions: follow up appt with on wednesday01/19/18 at 1:00pm Referrals: Jeff Granados MD [Family Provider] -
== END 2018-01-13 14:29 | disposition home or self-care (01) | DRG 192 ==
LOC: H.ER 07:13 → H.ERHOLD 11:41 → H.TEL 18:04 → OBSVTOIN 01-12 15:46
PROC: 3E0F73Z Introduction of Anti-inflammatory into Respiratory Tract, Via Natural or Artificial Opening (ICD-10-PCS; principal; 2018-01-12)
PROC: 3E0F7GC Introduction of Other Therapeutic Substance into Respiratory Tract, Via Natural or Artificial Opening (ICD-10-PCS; 2018-01-12)
DX: J44.1 Chronic obstructive pulmonary disease with (acute) exacerbation (principal); R09.02 Hypoxemia; D72.829 Elevated white blood cell count, unspecified; I10 Essential (primary) hypertension; E78.00 Pure hypercholesterolemia, unspecified; Z99.81 Dependence on supplemental oxygen; F17.210 Nicotine dependence, cigarettes, uncomplicated

== ENCOUNTER 2018-04-11 16:18 | Inpatient (IN) | payer MEDICARE, OTHER ==
[2018-04-11] MEDS ORDERED: Albuterol-Ipratrop 3 mg / 0.5 (3 ml) UD IH STA ×2 (16:49→18:19)
--- NOTE | 2018-04-11 16:54 | ED PDOC ---
HPI: SOB/CHF/COPD Time Seen by Provider: 04/11/18 16:42 Chief Complaint (Nursing): Shortness Of Breath History Per: Patient Onset/Duration Of Symptoms: Days (2) Current Symptoms Are (Timing): Still Present Quality: Tightness Exacerbating Factor(s): Coughing Current Respiratory Medications: See Home Med List Severity: Moderate Associated Symptoms: denies: Fever, Chest Pain, Productive Cough, Leg/Calf Pain Additional Complaint(s): SOB assoc with nonproductive cough x 2 days. Denies fever. No improvement with home nebulizers and PO prednisone. hasw cough and fever. Past Medical History Vital Signs: Last Vital Signs Temp 97.9 F 04/11/18 16:44 Pulse 94 H 04/11/18 16:45 Resp 19 04/11/18 16:45 BP 114/73 04/11/18 16:45 Pulse Ox 96 04/11/18 16:45 - Medical History PMH: COPD (USES O2 AT NIGHT), Emphysema, HTN, Hypercholesterolemia Denies: Arthritis, CHF, Hypothyroidism, Chronic Kidney Disease, Rheumatoid Arthritis - Surgical History Surgical History: Endoscopy - Family History Family History: States: Unknown Family Hx - Home Medications Home Medications: Ambulatory Orders Medication Instructions Recorded Olmesartan/Hydrochlorothiazide 1 tab PO DAILY 11/05/15 [Benicar Hct 20-12.5 mg Tablet] Albuterol HFA [Ventolin HFA 90 2 puff IH Q6 PRN 01/10/18 mcg/actuation (8 g)] Albuterol/Ipratropium [Duoneb 3 3 ml IH Q6 PRN 01/10/18 mg/0.5 mg (3 ml) UD] Atorvastatin [Lipitor] 10 mg PO DAILY 01/10/18 Meclizine [Antivert] 12.5 mg PO Q12 PRN 01/10/18 Pramipexole [Mirapex] 0.5 mg PO HS 01/10/18 - Allergies Allergies/Adverse Reactions: Allergies Allergy/AdvReac Type Severity Reaction Status Date / Time No Known Allergies Allergy Verified 05/30/15 09:49 Review of Systems ROS Statement: Except As Marked, All Systems Reviewed And Found Negative Respiratory: Positive for: Cough, Shortness of Breath. Negative for: Hemoptysis, Sputum Physical Exam - Reviewed Nursing Documentation Reviewed: Yes Vital Signs Reviewed: Yes - Physical Exam Appears: Positive for: Non-toxic, No Acute Distress Head Exam: Positive for: ATRAUMATIC, NORMAL INSPECTION, NORMOCEPHALIC Skin: Positive for: Normal Color, Warm, DRY Eye Exam: Positive for: EOMI, Normal appearance, PERRL ENT: Positive for: Normal ENT Inspection Neck: Positive for: Normal, Painless ROM Cardiovascular/Chest: Positive for: Regular Rate, Rhythm Respiratory: Positive for: Decreased Breath Sounds, Rhonchi, Respiratory Distress (mild). Negative for: Wheezing Gastrointestinal/Abdominal: Positive for: Normal Exam, Soft Back: Positive for: Normal Inspection Extremity: Positive for: Normal ROM. Negative for: Calf Tenderness, Swelling Neurologic/Psych: Positive for: Alert, Oriented - Laboratory Results Result Diagrams: 04/11/18 17:00 04/11/18 17:00 - ECG O2 Sat by Pulse Oximetry: 96 Disposition - Clinical Impression Clinical Impression: COPD with acute exacerbation, Bronchitis - Patient ED Disposition Is Patient to be Admitted: Yes - Disposition Disposition Time: 18:54 Condition: FAIR - Pt Status Changed To: Hospital Disposition Of: Inpatient - Admit Certification Admit to Inpatient:: After my assessment, the patient will require hospitalization for at least two midnights. This is because of the severity of symptoms shown, intensity of services needed, and/or the medical risk in this patient being treated as an outpatient. - POA Present On Arrival: None
[2018-04-11 17:15] LABS: BASO % 0.2 % (0.0-2.0); EOS % 0.1 % (0.0-4.0); LYMPH # 0.1 K/uL (1.0-4.3); LYMPH % 1.1 % (20.0-40.0); MEAN CELL VOLUME 94.4 fl (81.0-99.0); MEAN CORPUSCULAR HGB CONC 32.9 g/dL (33.0-37.0); MONO # 0.7 K/uL (0.0-0.8); MONO % 7.3 % (0.0-10.0); NEUT # 8.7 K/uL (1.8-7.0); NEUT % 91.3 % (50.0-75.0); NRBC % 0.1 % (0.0-0.0); PLATELET COUNT 163 K/uL (130-400); RBC 3.86 Mil/uL (3.80-5.20); RED CELL DISTRIBUTION WIDTH 15.1 % (11.5-14.5); WHITE BLOOD COUNT 9.5 K/uL (4.8-10.8)
[2018-04-11 17:18] LABS: VENOUS BLOOD GAS BASE EXCESS 13.4 mmol/L (0.0-2.0); VENOUS BLOOD GAS PCO2 82 mmHg (40-60); VENOUS BLOOD GAS PO2 22 mm/Hg (30-55); VENOUS BLOOD PH 7.33 (7.32-7.43)
[2018-04-11 17:26] LABS: ALB/GLOB RATIO 1.5 (1.0-2.1); ALT/SGPT 27 U/L (9-52); AST/SGOT 33 U/L (14-36); BLOOD UREA NITROGEN 18 mg/dl (7-17); CALCIUM 9.2 mg/dL (8.4-10.2); GFR NON-AFRICAN AMERICAN > 60
[2018-04-11] MEDS ORDERED: Albuterol-Ipratrop 3 mg / 0.5 (3 ml) UD ONE ×2 (17:26→19:49)
[2018-04-11] MEDS ORDERED: Albuterol-Ipratrop 3 mg / 0.5 (3 ml) UD INH PRN (18:34)
[2018-04-11] MEDS ORDERED: Sodium Chloride 3% for Inhalation 4 ML VIAL.NEB IH PRN (18:35)
--- NOTE | 2018-04-11 18:42 | CP.PCM.HP ---
History of Present Illness - History of Present Illness History of Present Illness: CC: couldn't catch my breath HPI: 82 year old female PMH COPD on 2L NC at night, HTN, laryngeal CA, presents after a one day history of moderate to severe worsening shortness of breath associated with mildly productive cough. Patient states she woke up in the middle of the night unable to catch her breath. Breathing treatments did not help at home. In the ED patient received Duonebs and Solumedrol 125 mg with very little improvement. Patient fatigues with short sentences and has accessory muscle use. Afebrile, no WBC, mild azotemia BUN 18. VBG pCO2 83 however no signs of co2 narcosis. CXR unremarkable. Patient to be admitted for acute on chronic COPD exacerbation. ROS: per HPI all other systems reviewed and negative Present on Admission - Present on Admission Any Indicators Present on Admission: No Past Patient History - Past Medical History & Family History Past Medical History?: Yes - Past Social History Smoking Status: Current Some Days Smoker - CARDIAC Hx Congestive Heart Failure: No Hx Hypercholesterolemia: Yes Hx Hypertension: Yes - PULMONARY Hx Chronic Obstructive Pulmonary Disease (COPD): Yes (USES O2 AT NIGHT) Hx Emphysema: Yes - NEUROLOGICAL Hx Neurological Disorder: No - HEENT Hx HEENT Problems: No - RENAL Hx Chronic Kidney Disease: No - ENDOCRINE/METABOLIC Hx Hypothyroidism: No - HEMATOLOGICAL/ONCOLOGICAL Hx Blood Disorders: No - INTEGUMENTARY Hx Dermatological Problems: No - MUSCULOSKELETAL/RHEUMATOLOGICAL Hx Arthritis: No Hx Rheumatoid Arthritis: No - GASTROINTESTINAL Hx Ulcer: Yes - GENITOURINARY/GYNECOLOGICAL Hx Genitourinary Disorders: No - PSYCHIATRIC Hx Psychophysiologic Disorder: No Hx Substance Use: No - SURGICAL HISTORY Hx Surgeries: Yes - ANESTHESIA Hx Anesthesia: No Meds Allergies/Adverse Reactions: Allergies Allergy/AdvReac Type Severity Reaction Status Date / Time No Known Allergies Allergy Verified 05/30/15 09:49 Physical Exam - Constitutional Appears: Non-toxic, In Acute Distress (MILD) - Head Exam Head Exam: ATRAUMATIC, NORMOCEPHALIC - Eye Exam Eye Exam: EOMI, Normal appearance, PERRL Pupil Exam: NORMAL ACCOMODATION - ENT Exam ENT Exam: Mucous Membranes Moist, Normal Oropharynx - Respiratory Exam Respiratory Exam: Accessory Muscle Use, Decreased Breath Sounds - Cardiovascular Exam Cardiovascular Exam: RRR, +S1, +S2 - GI/Abdominal Exam GI & Abdominal Exam: Normal Bowel Sounds, Soft. absent: Organomegaly, Tenderness - Extremities Exam Extremities exam: Positive for: normal capillary refill, pedal pulses present - Back Exam Back exam: absent: CVA tenderness (L), CVA tenderness (R) - Neurological Exam Neurological exam: Alert, Oriented x3, Reflexes Normal - Psychiatric Exam Psychiatric exam: Normal Affect, Normal Mood - Skin Skin Exam: Dry, Warm Results - Vital Signs Recent Vital Signs: Last Vital Signs Temp 97.9 F 04/11/18 16:44 Pulse 94 H 04/11/18 16:45 Resp 19 04/11/18 17:00 BP 114/73 04/11/18 16:45 Pulse Ox 97 04/11/18 17:00 - Labs Result Diagrams: 04/11/18 17:00 04/11/18 17:00 Labs: Laboratory Results - last 24 hr 04/11/18 04/11/18 04/11/18 17:00 17:00 17:00 WBC 9.5 RBC 3.86 Hgb 12.0 Hct 36.4 MCV 94.4 MCH 31.0 MCHC 32.9 L RDW 15.1 H Plt Count 163 MPV 7.0 L Neut % (Auto) 91.3 H Lymph % (Auto) 1.1 L Dillon % (Auto) 7.3 Eos % (Auto) 0.1 Baso % (Auto) 0.2 Neut # (Auto) 8.7 H Lymph # (Auto) 0.1 L Dillon # (Auto) 0.7 Eos # (Auto) 0.0 Baso # (Auto) 0.0 pO2 VBG pH VBG pCO2 VBG HCO3 VBG Total CO2 VBG O2 Sat (Calc) VBG Base Excess VBG Potassium Glucose Lactate FiO2 Crit Value Called To Crit Value Called By Crit Value Read Back Blood Gas Notified Time Sodium 136 Potassium 4.5 Chloride 91 L Carbon Dioxide 39 H Anion Gap 11 BUN 18 H Creatinine 0.6 L Est GFR ( Amer) > 60 Est GFR (Non-Af Amer) > 60 Random Glucose 165 H Calcium 9.2 Total Bilirubin 0.4 AST 33 ALT 27 Alkaline Phosphatase 61 Troponin I < 0.0120 Total Protein 6.8 Albumin 4.0 Globulin 2.7 Albumin/Globulin Ratio 1.5 Venous Blood Potassium Influenza Typ A,B (EIA) Negative for flu a/b 04/11/18 17:15 WBC RBC Hgb Hct MCV MCH MCHC RDW Plt Count MPV Neut % (Auto) Lymph % (Auto) Dillon % (Auto) Eos % (Auto) Baso % (Auto) Neut # (Auto) Lymph # (Auto) Dillon # (Auto) Eos # (Auto) Baso # (Auto) pO2 22 L VBG pH 7.33 VBG pCO2 82 H* VBG HCO3 33.6 VBG Total CO2 45.7 H VBG O2 Sat (Calc) 40.5 VBG Base Excess 13.4 H VBG Potassium 4.6 Glucose 169 H Lactate 2.0 FiO2 21.0 Crit Value Called To Dmitri elizondo md Crit Value Called By 6075 Crit Value Read Back Y Blood Gas Notified Time 1718 Sodium 135.0 Potassium Chloride 95.0 L Carbon Dioxide Anion Gap BUN Creatinine Est GFR ( Amer) Est GFR (Non-Af Amer) Random Glucose Calcium Total Bilirubin AST ALT Alkaline Phosphatase Troponin I Total Protein Albumin Globulin Albumin/Globulin Ratio Venous Blood Potassium 4.6 Influenza Typ A,B (EIA) Assessment & Plan - Assessment and Plan (Free Text) Plan: 82 year old female PMH COPD on 2L NC at night, HTN, laryngeal CA, presents after a one day history of moderate to severe worsening shortness of breath associated with mildly productive cough. Patient states she woke up in the middle of the night unable to catch her breath. Breathing treatments did not help at home. In the ED patient received Duonebs and Solumedrol 125 mg with very little improvement. Patient fatigues with short sentences and has accessory muscle use. Afebrile, no WBC, mild azotemia BUN 18. VBG pCO2 83 however no signs of co2 narcosis. CXR unremarkable. Patient to be admitted for acute on chronic COPD exacerbation. Acute on Chronic COPD exacerbation - continue bronchodilators q4 and q2 as necessary - cont Solumedrol 60 mg q8H - Sputum cultures ordered - Azithromycin 500 mg IV daily for COPD exacerbation - CXR unremarkable - Consult with Dr. Granados Pulmonology HTN - cont Losartan for Benicar DVT ppx lovenox FULL CODE
[2018-04-11 19:32] LABS: ANISOCYTOSIS SLIGHT; BANDS 3 % (0-2); LYMPHOCYTE 5 % (20-50); MONOCYTE 9 % (0-10); NEUTROPHIL 83 % (42-75); PLATELET ESTIMATE NORMAL (NORMAL); TOTAL CELLS COUNTED 100
[2018-04-11 19:33] LABS: HYPOCHROMIC SLIGHT; TOXIC GRANULATION PRESENT
[2018-04-11] MEDS ORDERED: Azithromycin 500 MG IV IVPB ONE (19:49)
[2018-04-11] MEDS: Azithromycin 500 MG in Sodium Chloride 0.9% 250 ML IVPB SCH (20:05)
[2018-04-11] MEDS: Albuterol-Ipratrop 3 mg / 0.5 (3 ml) UD INH SCH (23:36)
[2018-04-12] MEDS: Albuterol-Ipratrop 3 mg / 0.5 (3 ml) UD INH SCH ×5 (04:50→19:42)
[2018-04-12 05:50] LABS: HEMOGLOBIN 11.1 g/dL (12.0-16.0); MEAN CELL VOLUME 93.5 fl (81.0-99.0); MEAN CORPUSCULAR HEMOGLOBIN 31.5 pg (27.0-31.0); MEAN CORPUSCULAR HGB CONC 33.7 g/dL (33.0-37.0); RBC 3.52 Mil/uL (3.80-5.20); WHITE BLOOD COUNT 5.5 K/uL (4.8-10.8)
[2018-04-12] MEDS ORDERED: Pneumococcal 23-Valent Vaccine IM ONE (06:00)
[2018-04-12 06:04] LABS: BLOOD UREA NITROGEN 17 mg/dl (7-17); CALCIUM 8.7 mg/dL (8.4-10.2); GFR NON-AFRICAN AMERICAN > 60
[2018-04-12] MEDS: Enoxaparin 40 mg Syringe SC SCH (08:48)
--- NOTE | 2018-04-12 09:40 | CP.PCM.PN ---
<Tonny Santamaria - Last Filed: 04/12/18 13:21> Subjective - Date & Time of Evaluation Date of Evaluation: 04/12/18 Time of Evaluation: 08:15 - Subjective Subjective: Pt seen and examined at bedside this am. Dr. Granados also present. Denied acute overnight events. Reports improved breathing. Objective - Vital Signs/Intake and Output Vital Signs (last 24 hours): Temp Pulse Resp BP Pulse Ox 98.1 F 78 18 107/61 99 04/12/18 08:00 04/12/18 08:47 04/12/18 08:00 04/12/18 08:47 04/12/18 08:00 - Medications Medications: Current Medications Albuterol/Ipratropium (Duoneb 3 Mg/0.5 Mg (3 Ml) Ud) 3 ml INH RQ2 PRN PRN Reason: Shortness of Breath Albuterol/Ipratropium (Duoneb 3 Mg/0.5 Mg (3 Ml) Ud) 3 ml INH RQ4 [facility] Last Admin: 04/12/18 08:05 Dose: 3 ml Atorvastatin Calcium (Lipitor) 10 mg PO DAILY [facility] Last Admin: 04/12/18 08:48 Dose: 10 mg Enoxaparin Sodium (Lovenox) 40 mg SC DAILY [facility]; Protocol Last Admin: 04/12/18 08:48 Dose: 40 mg Azithromycin 500 mg/ Sodium (Chloride) 250 mls @ 250 mls/hr IVPB DAILY [facility]; Protocol Last Admin: 04/11/18 20:05 Dose: 250 mls/hr Losartan Potassium (Cozaar) 50 mg PO DAILY [facility] Last Admin: 04/12/18 08:47 Dose: Not Given Methylprednisolone (Solu-Medrol) 60 mg IVP Q8 [facility] Last Admin: 04/12/18 08:49 Dose: 60 mg Ondansetron HCl (Zofran Inj) 4 mg IVP Q6 PRN PRN Reason: Nausea/Vomiting Pramipexole Dihydrochloride (Mirapex) 0.5 mg PO HS [facility] Last Admin: 04/11/18 23:31 Dose: 0.5 mg - Labs Labs: 04/12/18 04:45 04/12/18 04:45 - Constitutional Appears: No Acute Distress - Eye Exam Eye Exam: EOMI - ENT Exam ENT Exam: Mucous Membranes Moist - Respiratory Exam Respiratory Exam: Decreased Breath Sounds, Rhonchi (mild L) - Cardiovascular Exam Cardiovascular Exam: +S1, +S2 - GI/Abdominal Exam GI & Abdominal Exam: Soft, Normal Bowel Sounds. absent: Tenderness - Extremities Exam Extremities Exam: absent: Calf Tenderness - Back Exam Back Exam: absent: CVA tenderness (L), CVA tenderness (R) - Neurological Exam Neurological Exam: Alert, Awake, CN II-XII Intact, Oriented x3 - Psychiatric Exam Psychiatric exam: Normal Affect, Normal Mood Assessment and Plan - Assessment and Plan (Free Text) Assessment: 82 year old female 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 Patient to be admitted for acute on chronic COPD exacerbation. Plan: Acute on Chronic COPD exacerbation - Afebrile, no WBC, mild azotemia BUN 18. VBG pCO2 83 however no signs of co2 narcosis. CXR unremarkable. - Pulm: Dr. Granados: taper steroid methylprednisolone 40 mg q8H, increase roflumilast to 500 mcg od, Aerosol therapy to QID, albuterol Q4 PRN. - f/u ABG: may require BIPAP - Azithromycin 500 mg IV daily for COPD exacerbation - f/u Sputum cultures HTN - cont Losartan for Benicar DVT ppx - Lovenox 40 mg SC daily PT/OT: eval and treat FULL CODE Case and plan d/w Dr. Cesar Santamaria MD PGY2 <Columba Guerrero - Last Filed: 04/12/18 18:58> Objective - Vital Signs/Intake and Output Vital Signs (last 24 hours): Temp Pulse Resp BP Pulse Ox 97.6 F 83 22 120/68 96 04/12/18 17:08 04/12/18 17:08 04/12/18 17:08 04/12/18 17:08 04/12/18 17:08 - Medications Medications: Current Medications Albuterol Sulfate (Albuterol 0.083% Inhal Deborah (2.5 Mg/3 Ml) Ud) 2.5 mg INH RQ4 PRN PRN Reason: Shortness of Breath Albuterol/Ipratropium (Duoneb 3 Mg/0.5 Mg (3 Ml) Ud) 3 ml INH RQID [facility] Last Admin: 04/12/18 15:56 Dose: 3 ml Atorvastatin Calcium (Lipitor) 10 mg PO DAILY [facility] Last Admin: 04/12/18 08:48 Dose: 10 mg Enoxaparin Sodium (Lovenox) 40 mg SC DAILY [facility]; Protocol Last Admin: 04/12/18 08:48 Dose: 40 mg Azithromycin 500 mg/ Sodium (Chloride) 250 mls @ 250 mls/hr IVPB DAILY [facility]; Protocol Last Admin: 04/12/18 11:21 Dose: 250 mls/hr Losartan Potassium (Cozaar) 50 mg PO DAILY [facility] Last Admin: 04/12/18 08:47 Dose: Not Given Methylprednisolone (Solu-Medrol) 40 mg IVP Q8H [facility] Last Admin: 04/12/18 17:57 Dose: 40 mg Ondansetron HCl (Zofran Inj) 4 mg IVP Q6 PRN PRN Reason: Nausea/Vomiting Pramipexole Dihydrochloride (Mirapex) 0.5 mg PO HS [facility] Last Admin: 04/11/18 23:31 Dose: 0.5 mg Roflumilast (Daliresp) 500 mcg PO DAILY [facility] - Labs Labs: 04/12/18 04:45 04/12/18 04:45 Attending/Attestation - Attestation I have personally seen and examined this patient.: Yes I have fully participated in the care of the patient.: Yes I have reviewed all pertinent clinical information, including history, physical exam and plan: Yes Notes (Text): 04/12/18 18:58 agree with findings and plan as above
--- NOTE | 2018-04-12 09:40 | RAD ---
Date of service: 04/11/2018 HISTORY: SOB COMPARISON: Chest radiographs 03/16/2018. TECHNIQUE: Chest PA and lateral FINDINGS: LUNGS: No acute infiltrates are identified bilaterally. The bilateral hemidiaphragms are somewhat flattened with mammillation right hemidiaphragm. AP chest and appears increased and there is hyperinflation. COPD suggested. PLEURA: No significant pleural effusion identified. No pneumothorax apparent. CARDIOVASCULAR: Calcific atherosclerotic changes are seen related to the thoracic aorta. Normal cardiac size. No pulmonary vascular congestion. OSSEOUS STRUCTURES: No significant abnormalities. VISUALIZED UPPER ABDOMEN: Normal. OTHER FINDINGS: None. IMPRESSION: No acute infiltrate, pleural effusion or pulmonary vascular congestion appreciable. COPD changes reiterated.
--- NOTE | 2018-04-12 10:19 | CP.PCM.CON ---
History of Present Illness - History of Present Illness History of Present Illness: This 82-year-old female is well-known to me from the outpatient setting. She does have a prior history of severe COPD and requires home oxygen therapy. 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 She had been in her usual state of health at home but awoke the day prior to admission with severe shortness of breath. She denied any chest pain and states there was only occasional cough which was productive of only minimal amounts of sputum. There was no hemoptysis. She was unaware of fever and denied chills. She continues to take all her medications as prescribed. Past Patient History - Past Medical History & Family History Past Medical History?: Yes - Past Social History Smoking Status: Former Smoker Chewing Tobacco Use: No Cigar Use: No Alcohol: Social Drugs: Denies Home Situation {Lives}: With Family - CARDIAC Hx Hypercholesterolemia: Yes Hx Hypertension: Yes - PULMONARY Hx Chronic Obstructive Pulmonary Disease (COPD): Yes (USES O2 AT NIGHT) Hx Emphysema: Yes Hx Pneumonia: Yes - NEUROLOGICAL Other/Comment: restless leg syndrome - HEENT Hx HEENT Problems: No - RENAL Hx Chronic Kidney Disease: No - ENDOCRINE/METABOLIC Hx Endocrine Disorders: No - HEMATOLOGICAL/ONCOLOGICAL 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) - INTEGUMENTARY Hx Dermatological Problems: No - MUSCULOSKELETAL/RHEUMATOLOGICAL Hx Arthritis: Yes Hx Back Pain: Yes Hx Falls: No - GASTROINTESTINAL Hx Gastroesophageal Reflux: Yes Hx Ulcer: Yes - GENITOURINARY/GYNECOLOGICAL Hx Genitourinary Disorders: No - PSYCHIATRIC Hx Psychophysiologic Disorder: No Hx Substance Use: No - SURGICAL HISTORY Hx Surgeries: Yes Other/Comment: excision of vocal cord tumor - ANESTHESIA Hx Anesthesia: No Meds Allergies/Adverse Reactions: Allergies Allergy/AdvReac Type Severity Reaction Status Date / Time No Known Allergies Allergy Verified 05/30/15 09:49 - Medications Medications: Current Medications Albuterol/Ipratropium (Duoneb 3 Mg/0.5 Mg (3 Ml) Ud) 3 ml INH RQ2 PRN PRN Reason: Shortness of Breath Albuterol/Ipratropium (Duoneb 3 Mg/0.5 Mg (3 Ml) Ud) 3 ml INH RQ4 [facility] Last Admin: 04/12/18 08:05 Dose: 3 ml Atorvastatin Calcium (Lipitor) 10 mg PO DAILY [facility] Last Admin: 04/12/18 08:48 Dose: 10 mg Enoxaparin Sodium (Lovenox) 40 mg SC DAILY [facility]; Protocol Last Admin: 04/12/18 08:48 Dose: 40 mg Azithromycin 500 mg/ Sodium (Chloride) 250 mls @ 250 mls/hr IVPB DAILY [facility]; Protocol Last Admin: 04/11/18 20:05 Dose: 250 mls/hr Losartan Potassium (Cozaar) 50 mg PO DAILY [facility] Last Admin: 04/12/18 08:47 Dose: Not Given Methylprednisolone (Solu-Medrol) 60 mg IVP Q8 [facility] Last Admin: 04/12/18 08:49 Dose: 60 mg Ondansetron HCl (Zofran Inj) 4 mg IVP Q6 PRN PRN Reason: Nausea/Vomiting Pramipexole Dihydrochloride (Mirapex) 0.5 mg PO HS [facility] Last Admin: 04/11/18 23:31 Dose: 0.5 mg Physical Exam - Additional Findings Additional findings: Thin female sitting upright in bed. She appears slightly anxious during the examination. Mildly dyspneic with conversation. No dependent edema of the lower extremities, no cyanosis. No palpable lymphadenopathy. Voice is mildly hoarse. Neck supple and trachea is midline. No neck vein distention or carotid bruit. Chest is hyperresonant on percussion with displacement of both hemidiaphragms caudally. Breath sounds are diminished bilaterally with scattered rhonchi in the lower lobes. No audible wheezes. No bronchial breath sounds or egophony. Heart sounds are distant and rhythm is regular, mildly tachycardic. Abdomen is soft, nontender with normal bowel sounds. Results - Vital Signs Recent Vital Signs: Last Vital Signs Temp 98.1 F 04/12/18 08:00 Pulse 78 04/12/18 08:47 Resp 18 04/12/18 08:00 BP 107/61 04/12/18 08:47 Pulse Ox 99 04/12/18 08:00 - Labs Result Diagrams: 04/12/18 04:45 04/12/18 04:45 Labs: Laboratory Results - last 24 hr 04/11/18 04/11/18 04/11/18 17:00 17:00 17:00 WBC 9.5 RBC 3.86 Hgb 12.0 Hct 36.4 MCV 94.4 MCH 31.0 MCHC 32.9 L RDW 15.1 H Plt Count 163 MPV 7.0 L Neut % (Auto) 91.3 H Lymph % (Auto) 1.1 L [place] % (Auto) 7.3 Eos % (Auto) 0.1 Baso % (Auto) 0.2 Neut # (Auto) 8.7 H Lymph # (Auto) 0.1 L [place] # (Auto) 0.7 Eos # (Auto) 0.0 Baso # (Auto) 0.0 Neutrophils % (Manual) 83 H Band Neutrophils % 3 H Lymphocytes % (Manual) 5 L Monocytes % (Manual) 9 Toxic Granulation Present Platelet Estimate Normal Hypochromasia (manual) Slight Anisocytosis (manual) Slight pO2 VBG pH VBG pCO2 VBG HCO3 VBG Total CO2 VBG O2 Sat (Calc) VBG Base Excess VBG Potassium Glucose Lactate FiO2 Crit Value Called To Crit Value Called By Crit Value Read Back Blood Gas Notified Time Sodium 136 Potassium 4.5 Chloride 91 L Carbon Dioxide 39 H Anion Gap 11 BUN 18 H Creatinine 0.6 L Est GFR ( Amer) > 60 Est GFR (Non-Af Amer) > 60 Random Glucose 165 H Calcium 9.2 Total Bilirubin 0.4 AST 33 ALT 27 Alkaline Phosphatase 61 Troponin I < 0.0120 Total Protein 6.8 Albumin 4.0 Globulin 2.7 Albumin/Globulin Ratio 1.5 Venous Blood Potassium Influenza Typ A,B (EIA) Negative for flu a/b 04/11/18 04/12/18 04/12/18 17:15 04:45 04:45 WBC 5.5 RBC 3.52 L Hgb 11.1 L Hct 32.9 L MCV 93.5 MCH 31.5 H MCHC 33.7 RDW 15.0 H Plt Count 161 MPV Neut % (Auto) Lymph % (Auto) [place] % (Auto) Eos % (Auto) Baso % (Auto) Neut # (Auto) Lymph # (Auto) [place] # (Auto) Eos # (Auto) Baso # (Auto) Neutrophils % (Manual) Band Neutrophils % Lymphocytes % (Manual) Monocytes % (Manual) Toxic Granulation Platelet Estimate Hypochromasia (manual) Anisocytosis (manual) pO2 22 L VBG pH 7.33 VBG pCO2 82 H* VBG HCO3 33.6 VBG Total CO2 45.7 H VBG O2 Sat (Calc) 40.5 VBG Base Excess 13.4 H VBG Potassium 4.6 Glucose 169 H Lactate 2.0 FiO2 21.0 Crit Value Called To Dmitri elizondo md Crit Value Called By 6022 Crit Value Read Back Y Blood Gas Notified Time 1718 Sodium 135.0 134 Potassium 4.0 Chloride 95.0 L 92 L Carbon Dioxide 38 H Anion Gap 8 L BUN 17 Creatinine 0.6 L Est GFR ( Amer) > 60 Est GFR (Non-Af Amer) > 60 Random Glucose 146 H Calcium 8.7 Total Bilirubin AST ALT Alkaline Phosphatase Troponin I Total Protein Albumin Globulin Albumin/Globulin Ratio Venous Blood Potassium 4.6 Influenza Typ A,B (EIA) Assessment & Plan (1) COPD with acute exacerbation Status: Acute Priority: High (2) Acute on chronic respiratory failure with hypercapnia Status: Acute Priority: High - Assessment and Plan (Free Text) Plan: Begin tapering steroid dose. Resume roflumilast, but increase to 500mcg OD. Adjust aerosol therapy to QID Duoneb and Q4 PRN albuterol. 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 ABG is pending, BiPAP may be needed if PaCO2 remains elevated. - Date & Time Date: 04/12/18 Time: 10:19
[2018-04-12] MEDS ORDERED: Albuterol 0.083% Inhal Sol (2.5 mg/3 mL) UD INH PRN (10:20)
--- NOTE | 2018-04-12 10:55 | CARD ---
APPROVED REPORT Date of service: 04/11/2018 EKG Measurement Heart [id number] <Conclusion> Normal sinus rhythm Nonspecific ST-T changes Abnormal ECG
[2018-04-12] MEDS: Azithromycin 500 MG in Sodium Chloride 0.9% 250 ML IVPB SCH (11:21)
[2018-04-12] MEDS: MethylPREDNISolone 40 mg Vial IVP SCH ×2 (11:27→17:57)
[2018-04-12 13:39] LABS: ABG ALLEN TEST YES; ARTERIAL BLOOD GAS HCO3 35.3 mmol/L (21-28); ARTERIAL BLOOD GAS HEMOGLOBIN 11.8 g/dL (11.7-17.4); ARTERIAL BLOOD GAS O2 CAPACITY 16.2 mL/dL (16-24); ARTERIAL BLOOD GAS O2 CONTENT 15.9 ML/dL (15-23); ARTERIAL BLOOD GAS O2 SAT 98.3 % (95-98); ARTERIAL BLOOD GAS PCO2 66 mm/Hg (35-45); ARTERIAL BLOOD GAS PO2 86 mm/Hg (80-100); ARTERIAL BLOOD GAS TCO2 42.9 mmol/L (22-28)
--- NOTE | 2018-04-12 15:14 | PQF ---
PROVIDER RESPONSE TEXT: Other, Pt has reported history of emphysema, which can be under the umbrella of COPD. She currently h as COPD. REVIEWER QUERY TEXT: Conflicting Documentation Clarification A single mention of a history of Emphysema is listed in the ER record: Please document if the cond ition is: -- Confirmed and current -- Ruled out -- Other, please specify The patient's Clinical Indicators include: -- Query created by: Africa Salas on 04/12/2018 2:27 PM Electronically signed by: Tonny Santamaria 04/12/2018 3:11 PM
--- NOTE | 2018-04-12 15:14 | PQF ---
PROVIDER RESPONSE TEXT: Confirmed and current. REVIEWER QUERY TEXT: Conflicting Documentation Clarification 2 (two) queries as follows: 1. A single mention of Acute on Chronic Respiratory Failure with Hypercapnia is listed in the Pulmo trudiy consult. Please clarify if the diagnosis is: -- Confirmed and current -- Confirmed, treated and resolved -- Ruled out -- Other, please specify --Unable to determine 2. If in agreement is Acute on Chronic Respiratory Failure: POA? --Unable to determine if present on admission Respirations: 18->19->19-> 26->20 04/12@13:30:ABG: ph-7.40 pCO2-66 pO2-86 HCO3-35.3 FIO2 36.0 H and P: PMH COPD on 2L NC at night, HTN, laryngeal CA, presents after a one day hx of moderate to se joao worsening shortness of breath associated with mildly productive cough.Patient states she woke up in the middle of the night unable to catch her breath. Breathing treatments did not help at home.In the ED patient received Duonebs and Solumedrol 125 mg with very little improvement. Patient fatigues with short sentences and has accessory muscle use--mild azotemia BUN 18.VBG pCO2 83 however no signs of co2 narcosis --Acute on Chronic COPD exacerbation - continue bronchodilators q4 and q2 as necessary - cont Solumed rol 60 mg q8H 04/12 Pulmonary consult includes:(1) COPD with acute exacerbation Status: Acute Priority: High (2) Acute on chronic respiratory failure with hypercapnia Status: Acute Priority: High Begin tapering steroid dose.Resume roflumilast, but increase to 500mcg OD. Adjust aerosol therapy to QID Duoneb and Q4 PRN albuterol.Will continue azithromycin, and likely discharge on fpc QOD the rapy. ABG is pending, BiPAP may be needed if PaCO2 remains elevated. The patient's Clinical Indicators include: --- Query created by: Africa Salas on 04/12/2018 2:37 PM Electronically signed by: Tonny Santamaria 04/12/2018 3:11 PM
[2018-04-12] MEDS ORDERED: methylPREDNISolone 40 MG in Sodium Chloride 0.9% 50 ML IV SCH (17:00)
[2018-04-13] MEDS: MethylPREDNISolone 40 mg Vial IVP SCH ×2 (02:08→21:16)
[2018-04-13 06:17] LABS: HEMOGLOBIN 11.2 g/dL (12.0-16.0); MEAN CORPUSCULAR HEMOGLOBIN 30.8 pg (27.0-31.0); MEAN CORPUSCULAR HGB CONC 32.4 g/dL (33.0-37.0); RBC 3.63 Mil/uL (3.80-5.20); RED CELL DISTRIBUTION WIDTH 14.8 % (11.5-14.5); WHITE BLOOD COUNT 11.1 K/uL (4.8-10.8)
[2018-04-13 06:41] LABS: BLOOD UREA NITROGEN 23 mg/dl (7-17); CALCIUM 8.8 mg/dL (8.4-10.2); GFR NON-AFRICAN AMERICAN > 60
[2018-04-13] MEDS: Albuterol-Ipratrop 3 mg / 0.5 (3 ml) UD INH SCH ×4 (07:32→19:35)
[2018-04-13] MEDS: Enoxaparin 40 mg Syringe SC SCH (09:45)
[2018-04-13] MEDS: Azithromycin 500 MG in Sodium Chloride 0.9% 250 ML IVPB SCH (09:47)
--- NOTE | 2018-04-13 09:47 | CP.PCM.PN ---
Subjective - Date & Time of Evaluation Date of Evaluation: 04/13/18 Time of Evaluation: 09:42 - Subjective Subjective: Seen on morning rounds. Poor night sleep because of cough and SOB. Oxygenation is good, nasal canula on with 3.5 LPM flow. Vital signs have been okay. Awake and alert, seated upright in bed. Neck is supple and trachea midline. No dullness on chest percussion, hemidiaphragms displaced caudally. Breath sounds are diminished w/o audible wheezing. Dry rales present in lower lobes posteriorly. Harsh breath sounds in lower lobes bilaterally. No bronchial breath sounds or egophony. Begin NPPV with BiPAP 10/5/28%. Full dose Daliresp 500mcg to start today. Solumedrol reduced to 40MG Q12H. Objective - Vital Signs/Intake and Output Vital Signs (last 24 hours): Temp Pulse Resp BP Pulse Ox 97.8 F 80 20 121/56 L 95 04/13/18 08:47 04/13/18 08:47 04/13/18 08:47 04/13/18 08:47 04/13/18 08:47 - Medications Medications: Current Medications Albuterol Sulfate (Albuterol 0.083% Inhal Deborah (2.5 Mg/3 Ml) Ud) 2.5 mg INH RQ4 PRN PRN Reason: Shortness of Breath Albuterol/Ipratropium (Duoneb 3 Mg/0.5 Mg (3 Ml) Ud) 3 ml INH RQID [facility] Last Admin: 04/13/18 07:32 Dose: 3 ml Atorvastatin Calcium (Lipitor) 10 mg PO DAILY [facility] Last Admin: 04/12/18 08:48 Dose: 10 mg Enoxaparin Sodium (Lovenox) 40 mg SC DAILY [facility]; Protocol Last Admin: 04/12/18 08:48 Dose: 40 mg Azithromycin 500 mg/ Sodium (Chloride) 250 mls @ 250 mls/hr IVPB DAILY [facility]; Protocol Last Admin: 04/12/18 11:21 Dose: 250 mls/hr Methylprednisolone 40 mg/ (Sodium Chloride) 50 mls @ 100 mls/hr IV Q12 [facility] Losartan Potassium (Cozaar) 50 mg PO DAILY [facility] Last Admin: 04/12/18 08:47 Dose: Not Given Ondansetron HCl (Zofran Inj) 4 mg IVP Q6 PRN PRN Reason: Nausea/Vomiting Pramipexole Dihydrochloride (Mirapex) 0.5 mg PO HS [facility] Last Admin: 04/12/18 22:21 Dose: 0.5 mg Roflumilast (Daliresp) 500 mcg PO DAILY [facility] - Labs Labs: 04/13/18 05:20 04/13/18 05:20 Assessment and Plan (1) COPD with acute exacerbation Status: Acute (2) Acute on chronic respiratory failure with hypercapnia Status: Acute
--- NOTE | 2018-04-13 11:06 | CP.PCM.PN ---
<Tonny Santamaria - Last Filed: 04/13/18 14:31> Subjective - Date & Time of Evaluation Date of Evaluation: 04/13/18 Time of Evaluation: 08:00 - Subjective Subjective: Pt seen and examined at bedside this AM. Currently receiving respiratory treatment. Reports increased difficulty in breathing. No acute events overnight. Objective - Vital Signs/Intake and Output Vital Signs (last 24 hours): Temp Pulse Resp BP Pulse Ox 97.8 F 80 20 121/56 L 95 04/13/18 08:47 04/13/18 08:47 04/13/18 08:47 04/13/18 08:47 04/13/18 08:47 - Medications Medications: Current Medications Albuterol Sulfate (Albuterol 0.083% Inhal Deborah (2.5 Mg/3 Ml) Ud) 2.5 mg INH RQ4 PRN PRN Reason: Shortness of Breath Albuterol/Ipratropium (Duoneb 3 Mg/0.5 Mg (3 Ml) Ud) 3 ml INH RQID [facility] Last Admin: 04/13/18 07:32 Dose: 3 ml Atorvastatin Calcium (Lipitor) 10 mg PO DAILY [facility] Last Admin: 04/13/18 09:45 Dose: 10 mg Enoxaparin Sodium (Lovenox) 40 mg SC DAILY [facility]; Protocol Last Admin: 04/13/18 09:45 Dose: 40 mg Azithromycin 500 mg/ Sodium (Chloride) 250 mls @ 250 mls/hr IVPB DAILY [facility]; Protocol Last Admin: 04/13/18 09:47 Dose: 250 mls/hr Losartan Potassium (Cozaar) 50 mg PO DAILY [facility] Last Admin: 04/13/18 09:45 Dose: 50 mg Methylprednisolone (Solu-Medrol) 40 mg IVP Q12 [facility] Ondansetron HCl (Zofran Inj) 4 mg IVP Q6 PRN PRN Reason: Nausea/Vomiting Pramipexole Dihydrochloride (Mirapex) 0.5 mg PO HS [facility] Last Admin: 04/12/18 22:21 Dose: 0.5 mg Roflumilast (Daliresp) 500 mcg PO DAILY [facility] Last Admin: 04/13/18 09:46 Dose: 500 mcg - Labs Labs: 04/13/18 05:20 04/13/18 05:20 - Constitutional Appears: No Acute Distress - Eye Exam Eye Exam: EOMI - ENT Exam ENT Exam: Mucous Membranes Moist - Neck Exam Neck Exam: Full ROM - Respiratory Exam Respiratory Exam: Decreased Breath Sounds, Rales Additional comments: NC 3L - Cardiovascular Exam Cardiovascular Exam: +S1, +S2 - GI/Abdominal Exam GI & Abdominal Exam: Soft, Normal Bowel Sounds. absent: Tenderness - Neurological Exam Neurological Exam: Alert, Awake - Psychiatric Exam Psychiatric exam: Normal Affect, Normal Mood Assessment and Plan - Assessment and Plan (Free Text) Assessment: 82 year old female 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 Patient to be admitted for acute on chronic COPD exacerbation. Plan: BCX: NG 24 HRS Sputum: pending Acute on Chronic COPD exacerbation - Afebrile, no WBC, mild azotemia BUN 18. VBG pCO2 83 however no signs of co2 narcosis. CXR unremarkable. - Pulm: Dr. Granados: taper steroid methylprednisolone 40 mg q12H, roflumilast 500 mcg od, Aerosol therapy to QID, albuterol Q4 PRN. - ABG: NPPV with BiPAP 10/5/28% - Azithromycin 500 mg IV daily for COPD exacerbation - f/u Sputum cultures HTN - cont Losartan for Benicar DVT ppx - Lovenox 40 mg SC daily PT/OT: - Eval and treat FULL CODE Case and plan d/w Dr. Cesar Santamaria MD PGY2 <Lexi Benedict - Last Filed: 04/13/18 18:16> Objective - Vital Signs/Intake and Output Vital Signs (last 24 hours): Temp Pulse Resp BP Pulse Ox 98.3 F 88 20 123/63 96 04/13/18 16:00 04/13/18 16:00 04/13/18 16:00 04/13/18 16:00 04/13/18 16:00 Intake and Output: 04/13/18 04/13/18 06:59 18:59 Intake Total 100 Balance 100 - Medications Medications: Current Medications Albuterol Sulfate (Albuterol 0.083% Inhal Deborah (2.5 Mg/3 Ml) Ud) 2.5 mg INH RQ4 PRN PRN Reason: Shortness of Breath Albuterol/Ipratropium (Duoneb 3 Mg/0.5 Mg (3 Ml) Ud) 3 ml INH RQID [facility] Last Admin: 04/13/18 15:36 Dose: 3 ml Atorvastatin Calcium (Lipitor) 10 mg PO DAILY [facility] Last Admin: 04/13/18 09:45 Dose: 10 mg Enoxaparin Sodium (Lovenox) 40 mg SC DAILY [facility]; Protocol Last Admin: 04/13/18 09:45 Dose: 40 mg Azithromycin 500 mg/ Sodium (Chloride) 250 mls @ 250 mls/hr IVPB DAILY [facility]; Protocol Last Admin: 04/13/18 09:47 Dose: 250 mls/hr Losartan Potassium (Cozaar) 50 mg PO DAILY [facility] Last Admin: 04/13/18 09:45 Dose: 50 mg Methylprednisolone (Solu-Medrol) 40 mg IVP Q12 [facility] Ondansetron HCl (Zofran Inj) 4 mg IVP Q6 PRN PRN Reason: Nausea/Vomiting Pramipexole Dihydrochloride (Mirapex) 0.5 mg PO HS [facility] Last Admin: 04/12/18 22:21 Dose: 0.5 mg Roflumilast (Daliresp) 500 mcg PO DAILY [facility] Last Admin: 04/13/18 09:46 Dose: 500 mcg - Labs Labs: 04/13/18 05:20 04/13/18 05:20 Attending/Attestation - Attestation I have personally seen and examined this patient.: Yes I have fully participated in the care of the patient.: Yes I have reviewed all pertinent clinical information, including history, physical exam and plan: Yes Notes (Text): Acute COPD exacerbation HTN cont IV Solumedrol , decrease to 40 q 12 and Duoneb tx, cont Daliresp - discussed case with Dr Granados - rec Bipap q hs - Physical therapy consult
[2018-04-13] MEDS ORDERED: methylPREDNISolone 40 MG in Sodium Chloride 0.9% 50 ML IV SCH (21:00)
[2018-04-14 06:08] LABS: MEAN CELL VOLUME 94.2 fl (81.0-99.0); MEAN CORPUSCULAR HEMOGLOBIN 31.9 pg (27.0-31.0); MEAN CORPUSCULAR HGB CONC 33.8 g/dL (33.0-37.0); RBC 3.46 Mil/uL (3.80-5.20); WHITE BLOOD COUNT 10.7 K/uL (4.8-10.8)
[2018-04-14 06:27] LABS: BLOOD UREA NITROGEN 27 mg/dl (7-17); CALCIUM 8.8 mg/dL (8.4-10.2); GFR NON-AFRICAN AMERICAN > 60
[2018-04-14] MEDS: Albuterol-Ipratrop 3 mg / 0.5 (3 ml) UD INH SCH ×3 (07:44→15:26)
[2018-04-14] MEDS: MethylPREDNISolone 40 mg Vial IVP SCH (09:16)
[2018-04-14] MEDS: Enoxaparin 40 mg Syringe SC SCH (09:17)
[2018-04-14] MEDS: Azithromycin 500 MG in Sodium Chloride 0.9% 250 ML IVPB SCH (09:18)
--- NOTE | 2018-04-14 09:29 | CP.PCM.PN ---
<Tonny Santamaria - Last Filed: 04/14/18 11:42> Subjective - Date & Time of Evaluation Date of Evaluation: 04/14/18 Time of Evaluation: 07:30 - Subjective Subjective: Pt seen and examined at bedside this AM. Tolerated BIPap overnight. Reports mild improvement, however, with some difficulty breathing. Objective - Vital Signs/Intake and Output Vital Signs (last 24 hours): Temp Pulse Resp BP Pulse Ox 98.0 F 89 20 145/56 L 94 L 04/14/18 08:34 04/14/18 08:34 04/14/18 08:34 04/14/18 08:34 04/14/18 08:34 - Medications Medications: Current Medications Albuterol Sulfate (Albuterol 0.083% Inhal Deborah (2.5 Mg/3 Ml) Ud) 2.5 mg INH RQ4 PRN PRN Reason: Shortness of Breath Albuterol/Ipratropium (Duoneb 3 Mg/0.5 Mg (3 Ml) Ud) 3 ml INH RQID [facility] Last Admin: 04/14/18 07:44 Dose: 3 ml Atorvastatin Calcium (Lipitor) 10 mg PO DAILY [facility] Last Admin: 04/14/18 09:17 Dose: 10 mg Enoxaparin Sodium (Lovenox) 40 mg SC DAILY [facility]; Protocol Last Admin: 04/14/18 09:17 Dose: 40 mg Azithromycin 500 mg/ Sodium (Chloride) 250 mls @ 250 mls/hr IVPB DAILY [facility]; Protocol Last Admin: 04/14/18 09:18 Dose: 250 mls/hr Losartan Potassium (Cozaar) 50 mg PO DAILY [facility] Last Admin: 04/14/18 09:17 Dose: 50 mg Methylprednisolone (Solu-Medrol) 40 mg IVP Q12 [facility] Last Admin: 04/14/18 09:16 Dose: 40 mg Ondansetron HCl (Zofran Inj) 4 mg IVP Q6 PRN PRN Reason: Nausea/Vomiting Pramipexole Dihydrochloride (Mirapex) 0.5 mg PO HS [facility] Last Admin: 04/13/18 21:16 Dose: 0.5 mg Roflumilast (Daliresp) 500 mcg PO DAILY [facility] Last Admin: 04/14/18 09:17 Dose: 500 mcg - Labs Labs: 04/14/18 05:25 04/14/18 05:25 - Constitutional Appears: Well, No Acute Distress - Eye Exam Eye Exam: EOMI - ENT Exam ENT Exam: Mucous Membranes Moist - Respiratory Exam Respiratory Exam: Decreased Breath Sounds, Rales - Cardiovascular Exam Cardiovascular Exam: +S1, +S2 - GI/Abdominal Exam GI & Abdominal Exam: Soft, Normal Bowel Sounds. absent: Tenderness - Neurological Exam Neurological Exam: Alert, Awake, CN II-XII Intact, Oriented x3 - Psychiatric Exam Psychiatric exam: Normal Affect, Normal Mood Assessment and Plan - Assessment and Plan (Free Text) Assessment: 82 year old female 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 Patient to be admitted for acute on chronic COPD exacerbation. Plan: BCX: NG 48 HRS Sputum: pending Acute on Chronic COPD exacerbation - Afebrile, no WBC, mild azotemia BUN 18. VBG pCO2 83 however no signs of co2 na rcosis. CXR unremarkable. - Pulm: Dr. Granados: taper methylprednisolone 30 mg q12H, roflumilast 500 mcg od, Aerosol therapy to QID, albuterol Q4 PRN. - VQ lung scan d/t pulm htn on prior ECHO - ABG: NPPV with BiPAP QHS - Azithromycin 500 mg IV daily for COPD exacerbation - f/u Sputum cultures, VQ lung scan, alpha 1 AT, chest CT w/o (hx pulm nodules) HTN - cont Losartan for Benicar DVT ppx - Lovenox 40 mg SC daily PT/OT: - Eval and treat: pending recs FULL CODE Discharge planning to TCU Case and plan d/w Dr. Jak Santamaria MD PGY2 <Lexi Benedict - Last Filed: 04/14/18 17:05> Objective - Vital Signs/Intake and Output Vital Signs (last 24 hours): Temp Pulse Resp BP Pulse Ox 98 F 92 H 22 137/67 94 L 04/14/18 16:28 04/14/18 16:28 04/14/18 16:28 04/14/18 16:28 04/14/18 16:28 - Medications Medications: Current Medications Albuterol Sulfate (Albuterol 0.083% Inhal Deborah (2.5 Mg/3 Ml) Ud) 2.5 mg INH RQ4 PRN PRN Reason: Shortness of Breath Albuterol/Ipratropium (Duoneb 3 Mg/0.5 Mg (3 Ml) Ud) 3 ml INH RQID [facility] Last Admin: 04/14/18 15:26 Dose: Not Given Atorvastatin Calcium (Lipitor) 10 mg PO DAILY [facility] Last Admin: 04/14/18 09:17 Dose: 10 mg Enoxaparin Sodium (Lovenox) 40 mg SC DAILY [facility]; Protocol Last Admin: 04/14/18 09:17 Dose: 40 mg Azithromycin 500 mg/ Sodium (Chloride) 250 mls @ 250 mls/hr IVPB DAILY [facility]; Protocol Last Admin: 04/14/18 09:18 Dose: 250 mls/hr Losartan Potassium (Cozaar) 50 mg PO DAILY [facility] Last Admin: 04/14/18 09:17 Dose: 50 mg Methylprednisolone (Solu-Medrol) 30 mg IVP Q12 [facility] Ondansetron HCl (Zofran Inj) 4 mg IVP Q6 PRN PRN Reason: Nausea/Vomiting Pramipexole Dihydrochloride (Mirapex) 0.5 mg PO HS [facility] Last Admin: 04/13/18 21:16 Dose: 0.5 mg Roflumilast (Daliresp) 500 mcg PO DAILY [facility] Last Admin: 04/14/18 09:17 Dose: 500 mcg - Labs Labs: 04/14/18 05:25 04/14/18 05:25 Attending/Attestation - Attestation I have personally seen and examined this patient.: Yes I have fully participated in the care of the patient.: Yes I have reviewed all pertinent clinical information, including history, physical exam and plan: Yes Notes (Text): Acute COPD exacerbation HTN Physical Deconditioning cont IV Solumedrol , decrease to 0 q 12 cont Duoneb tx, Daliresp and Azithromycin - discussed case with Dr Granados - rec Bipap q hs - Physical therapy consulted- rec TCU - will d/c to TCU for PT and to continue Pulmonary treatment with IV steroids, and Bipap
--- NOTE | 2018-04-14 10:07 | CP.PCM.PN ---
Subjective - Date & Time of Evaluation Date of Evaluation: 04/14/18 Time of Evaluation: 10:05 - Subjective Subjective: Seated on edge of bed, appears comfortable. SpO2 92% with nasal canula at 2 LPM. Slept with BiPAP on last night. No incidents reported. Does complain of dry mouth this morning, likely from mask ventilation. Vital signs remain stable. WBC 10.7, Hgb 11, Plt 158, TCO2 39. Pharynx pink, dry mucosa. Neck supple, trachea midline. Hyper-resonant chest percussion. Decreased BS bilaterally, dry rales in LLs. No audible wheezes or bronchial breath sounds. Heart sounds are distant, regular. No dependant edema, no cyanosis or clubbing. Reduce steroids again today. Continue BiPAP ventilation overnight. VQ lung scan; pulmonary htn on prior echocardiogram. Alpha [address] w/o contrast; prior CT showed pulmonary nodules. Candidate for TCU? Objective - Vital Signs/Intake and Output Vital Signs (last 24 hours): Temp Pulse Resp BP Pulse Ox 98.0 F 89 20 145/56 L 94 L 04/14/18 08:34 04/14/18 08:34 04/14/18 08:34 04/14/18 08:34 04/14/18 08:34 - Medications Medications: Current Medications Albuterol Sulfate (Albuterol 0.083% Inhal Deborah (2.5 Mg/3 Ml) Ud) 2.5 mg INH RQ4 PRN PRN Reason: Shortness of Breath Albuterol/Ipratropium (Duoneb 3 Mg/0.5 Mg (3 Ml) Ud) 3 ml INH RQID DURAN Last Admin: 04/14/18 07:44 Dose: 3 ml Atorvastatin Calcium (Lipitor) 10 mg PO DAILY DURAN Last Admin: 04/14/18 09:17 Dose: 10 mg Enoxaparin Sodium (Lovenox) 40 mg SC DAILY DURAN; Protocol Last Admin: 04/14/18 09:17 Dose: 40 mg Azithromycin 500 mg/ Sodium (Chloride) 250 mls @ 250 mls/hr IVPB DAILY DURAN; Pr otocol Last Admin: 04/14/18 09:18 Dose: 250 mls/hr Methylprednisolone 30 mg/ (Sodium Chloride) 50 mls @ 100 mls/hr IV Q12 DURAN Losartan Potassium (Cozaar) 50 mg PO DAILY DURAN Last Admin: 04/14/18 09:17 Dose: 50 mg Ondansetron HCl (Zofran Inj) 4 mg IVP Q6 PRN PRN Reason: Nausea/Vomiting Pramipexole Dihydrochloride (Mirapex) 0.5 mg PO HS [facility] Last Admin: 04/13/18 21:16 Dose: 0.5 mg Roflumilast (Daliresp) 500 mcg PO DAILY [facility] Last Admin: 04/14/18 09:17 Dose: 500 mcg - Labs Labs: 04/14/18 05:25 04/14/18 05:25 Assessment and Plan (1) COPD with acute exacerbation Status: Acute (2) Acute on chronic respiratory failure with hypercapnia Status: Acute (3) Pulmonary hypertension Status: Chronic
--- NOTE | 2018-04-14 14:30 | CT ---
Date of service: 04/14/2018 PROCEDURE: CT Chest without contrast HISTORY: pulmonary nodules COMPARISON: 05/31/2015. TECHNIQUE: Contiguous axial images were obtained through the chest without intravenous contrast enhancement. Sagittal and coronal reconstructions were performed. Radiation dose (DLP): 160.42 mGy-cm. This CT exam was performed using one or more of the following dose reduction techniques: Automated exposure control, adjustment of the mA and/or kV according to patient size, and/or use of iterative reconstruction technique. FINDINGS: LUNGS: No pulmonary infiltrate. Scattered small pulmonary nodules, 5 mm or less, right greater than left. These nodules are entirely unchanged when compared to the prior examination of 2015. The largest such nodule is a perifissural 5 mm nodule in the right middle lobe, possibly an intrapulmonary lymph node. There are areas of nonspecific small airways disease seen in the right lower lobe, new since prior examination. This is manifested as a "tree-in-bud" appearance. Possible infectious or inflammatory etiology. There is also a small area of focal small airways disease in the left lower lobe. Again common not present previously. MEDIASTINUM: Unremarkable thoracic aorta. No aneurysm. Normal sized heart. Coronary arterial calcification noted. Main pulmonary artery unremarkable. No vascular congestion. No lymphadenopathy. No aortic atherosclerotic calcification or mural plaque present. PLEURA: No pleural fluid. No pneumothorax. BONES: No fracture. No destructive lesion. UPPER ABDOMEN: Grossly unremarkable. OTHER FINDINGS: None. IMPRESSION: Multiple small stable bilateral pulmonary nodules. No new pulmonary mass. Multifocal nonspecific small airways disease in both lower lobes, right greater than left. Possible infectious or inflammatory etiology.
--- NOTE | 2018-04-14 16:06 | NM ---
Date of service: 04/14/2018 COMPARISON: Not available TECHNIQUE: 40.7 mCi technetium 99-m DTPA aerosol. 5.5 mCI technetium 99-m MAA administered intravenously. FINDINGS: VENTILATION COMPONENT: The ventilation scan is grossly limited due to extensive central tracheobronchial deposition of the radiopharmaceutical. PERFUSION COMPONENT: The perfusion scan shows no appreciable perfusion defects. IMPRESSION: Lowprobability ventilation perfusion scan for pulmonary embolism.
[2018-04-14 16:28] VITALS: BP 137/67; PULSE 92; RESP 22; TEMP 98; O2SAT 94
[2018-04-14] MEDS ORDERED: MethylPREDNISolone 40 mg Vial IVP SCH (21:00)
[2018-04-14] MEDS ORDERED: methylPREDNISolone 30 MG in Sodium Chloride 0.9% 50 ML IV SCH (21:00)
--- NOTE | 2018-04-15 10:04 | PQF ---
PROVIDER RESPONSE TEXT: Present on admission REVIEWER QUERY TEXT: Present On Admission It is unclear whether a diagnosis was present on admission. Please clarify the POA status of Acute Respiratory Failure Such as: -- Present on admission -- Not present on admission Respirations: 18->19->19-> 26->20 04/12@13:30:ABG: ph-7.40 pCO2-66 pO2-86 HCO3-35.3 FIO2 36.0 H and P: PMH COPD on 2L NC at night, HTN, laryngeal CA, presents after a one day hx of moderate to se joao worsening shortness of breath associated with mildly productive cough. Patient states she woke u p in the middle of the night unable to catch her breath. Breathing treatments did not help at home.In the ED patient received Duonebs and Solumedrol 125 mg with very little improvement. Patient fatigues with short sentences and has accessory muscle use--mild azotemia BUN 18.VBG pCO2 83 however no signs of co2 narcosis --Acute on Chronic COPD exacerbation - continue bronchodilators q4 and q2 as necessary - cont Solumed rol 60 mg q8H 04/12 Pulmonary consult includes:(1) COPD with acute exacerbation Status: Acute Priority: High (2) Acute on chronic respiratory failure with hypercapnia Status: Acute Priority: High Begin tapering steroid dose.Resume roflumilast, but increase to 500mcg OD. Adjust aerosol therapy to QID Duoneb and Q4 PRN albuterol.Will continue azithromycin, and likely discharge on prison QOD the rapy. ABG is pending, BiPAP may be needed if PaCO2 remains elevated. The patient's Clinical Indicators include: -- Query created by: Africa Salas on 04/13/2018 7:23 AM Electronically signed by: Tonny Santamaria 04/15/2018 8:24 AM
--- NOTE | 2018-04-15 10:34 | CP.PCM.DIS ---
<Tonny Santamaria - Last Filed: 04/15/18 15:29> Provider - Provider Date of Admission: 04/11/18 18:30 Attending physician: Columba Guerrero DO Consults: 04/11/18 18:48 Pulmonology Consult Routine Comment: Consulting Provider: Jeff Granados Consulting Physician: Jeff Granados Reason for Consult: COPD EXACERBATION Time Spent in preparation of Discharge (in minutes): 30 Hospital Course - Lab Results Lab Results: Micro Results 04/11/18 17:00 Blood-Venous Blood Culture - Preliminary NO GROWTH AFTER 3 DAYS 04/11/18 18:00 Sputum Gram Stain - Final 04/11/18 18:00 Sputum Sputum Culture - Final Yeast Species Most Recent Lab Values WBC 10.7 K/uL (4.8-10.8) 04/14/18 05:25 RBC 3.46 Mil/uL (3.80-5.20) L 04/14/18 05:25 Hgb 11.0 g/dL (12.0-16.0) L 04/14/18 05:25 Hct 32.6 % (34.0-47.0) L 04/14/18 05:25 MCV 94.2 fl (81.0-99.0) 04/14/18 05:25 MCH 31.9 pg (27.0-31.0) H 04/14/18 05:25 MCHC 33.8 g/dL (33.0-37.0) 04/14/18 05:25 RDW 15.0 % (11.5-14.5) H 04/14/18 05:25 Plt Count 158 K/uL (130-400) 04/14/18 05:25 MPV 7.0 fl (7.2-11.7) L 04/11/18 17:00 Neut % (Auto) 91.3 % (50.0-75.0) H 04/11/18 17:00 Lymph % (Auto) 1.1 % (20.0-40.0) L 04/11/18 17:00 Kleberg % (Auto) 7.3 % (0.0-10.0) 04/11/18 17:00 Eos % (Auto) 0.1 % (0.0-4.0) 04/11/18 17:00 Baso % (Auto) 0.2 % (0.0-2.0) 04/11/18 17:00 Neut # (Auto) 8.7 K/uL (1.8-7.0) H 04/11/18 17:00 Lymph # (Auto) 0.1 K/uL (1.0-4.3) L 04/11/18 17:00 Kleberg # (Auto) 0.7 K/uL (0.0-0.8) 04/11/18 17:00 Eos # (Auto) 0.0 K/uL (0.0-0.7) 04/11/18 17:00 Baso # (Auto) 0.0 K/uL (0.0-0.2) 04/11/18 17:00 Neutrophils % (Manual) 83 % (42-75) H 04/11/18 17:00 Band Neutrophils % 3 % (0-2) H 04/11/18 17:00 Lymphocytes % (Manual) 5 % (20-50) L 04/11/18 17:00 Monocytes % (Manual) 9 % (0-10) 04/11/18 17:00 Toxic Granulation Present 04/11/18 17:00 Platelet Estimate Normal (NORMAL) 04/11/18 17:00 Hypochromasia (manual) Slight 04/11/18 17:00 Anisocytosis (manual) Slight 04/11/18 17:00 pCO2 66 mm/Hg (35-45) H 04/12/18 13:30 pO2 86 mm/Hg (80-100) 04/12/18 13:30 HCO3 35.3 mmol/L (21-28) H 04/12/18 13:30 ABG pH 7.40 (7.35-7.45) 04/12/18 13:30 ABG Total CO2 42.9 mmol/L (22-28) H 04/12/18 13:30 ABG O2 Saturation 98.3 % (95-98) H 04/12/18 13:30 ABG O2 Content 15.9 ML/dL (15-23) 04/12/18 13:30 ABG Base Excess 13.4 mmol/L (-2.0-3.0) H 04/12/18 13:30 ABG Hemoglobin 11.8 g/dL (11.7-17.4) 04/12/18 13:30 ABG Carboxyhemoglobin 1.7 % (0.5-1.5) H 04/12/18 13:30 POC ABG HHb (Measured) 1.7 % (0.0-5.0) 04/12/18 13:30 ABG Methemoglobin 1.2 % (0.0-3.0) 04/12/18 13:30 ABG O2 Capacity 16.2 mL/dL (16-24) 04/12/18 13:30 Kermit Test Yes 04/12/18 13:30 VBG pH 7.33 (7.32-7.43) 04/11/18 17:15 VBG pCO2 82 mmHg (40-60) H* 04/11/18 17:15 VBG HCO3 33.6 mmol/L 04/11/18 17:15 VBG Total CO2 45.7 mmol/L (22-28) H 04/11/18 17:15 VBG O2 Sat (Calc) 40.5 % (40-65) 04/11/18 17:15 VBG Base Excess 13.4 mmol/L (0.0-2.0) H 04/11/18 17:15 VBG Potassium 4.6 mmol/L (3.6-5.2) 04/11/18 17:15 A-a O2 Difference 88.0 mm/Hg 04/12/18 13:30 Hgb O2 Saturation 95.5 % (95.0-98.0) 04/12/18 13:30 Sodium 135.0 mmol/L (132-148) 04/11/18 17:15 Chloride 95.0 mmol/L (98-107) L 04/11/18 17:15 Glucose 169 mg/dL (65-105) H 04/11/18 17:15 Lactate 2.0 mmol/L (0.7-2.1) 04/11/18 17:15 FiO2 36.0 % 04/12/18 13:30 Crit Value Called To Dmitri elizondo md 04/11/18 17:15 Crit Value Called By [id number] 04/11/18 17:15 Crit Value Read Back Y 04/11/18 17:15 Blood Gas Notified Time 1718 04/11/18 17:15 Sodium 136 mmol/l (132-148) 04/14/18 05:25 Potassium 4.7 MMOL/L (3.6-5.0) 04/14/18 05:25 Chloride 88 mmol/L (98-107) L 04/14/18 05:25 Carbon Dioxide 39 mmol/L (22-30) H 04/14/18 05:25 Anion Gap 14 (10-20) 04/14/18 05:25 BUN 27 mg/dl (7-17) H 04/14/18 05:25 Creatinine 0.6 mg/dl (0.7-1.2) L 04/14/18 05:25 Est GFR ( Amer) > 60 04/14/18 05:25 Est GFR (Non-Af Amer) > 60 04/14/18 05:25 POC Glucose (mg/dL) 185 mg/dL (65-110) H 04/14/18 16:12 Random Glucose 151 mg/dL (65-105) H 04/14/18 05:25 Calcium 8.8 mg/dL (8.4-10.2) 04/14/18 05:25 Total Bilirubin 0.4 mg/dl (0.2-1.3) 04/11/18 17:00 AST 33 U/L (14-36) 04/11/18 17:00 ALT 27 U/L (9-52) 04/11/18 17:00 Alkaline Phosphatase 61 U/L (38-126) 04/11/18 17:00 Troponin I < 0.0120 ng/mL (0.00-0.120) 04/11/18 17:00 Total Protein 6.8 G/DL (6.3-8.2) 04/11/18 17:00 Albumin 4.0 g/dL (3.5-5.0) 04/11/18 17:00 Globulin 2.7 gm/dL (2.2-3.9) 04/11/18 17:00 Albumin/Globulin Ratio 1.5 (1.0-2.1) 04/11/18 17:00 Yelqe-8-Ixznttmalef 147 mg/dL (83-199) 04/14/18 10:35 Venous Blood Potassium 4.6 mmol/L (3.6-5.2) 04/11/18 17:15 Influenza Typ A,B (EIA) Negative for flu a/b (NEGATIVE) 04/11/18 17:00 - Hospital Course Hospital Course: 82 year old female 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 Patient to be admitted for acute on chronic COPD exacerbation. BCX: NG 3 days Sputum: yeast species Acute on Chronic COPD exacerbation - Afebrile, no WBC, mild azotemia BUN 18. VBG pCO2 83 however no signs of co2 narcosis. CXR unremarkable. - Pulm: Dr. Granados: taper methylprednisolone 30 mg q12H, roflumilast 500 mcg od, Aerosol therapy to QID, albuterol Q4 PRN. - VQ lung scan d/t pulm htn on prior ECHO - ABG: NPPV with BiPAP QHS - Azithromycin 500 mg IV daily for COPD exacerbation - f/u VQ lung scan, alpha 1 AT, chest CT w/o (hx pulm nodules) HTN - Losartan for Benicar DVT ppx - Lovenox 40 mg SC daily PT/OT: - Eval and treat: for TCU FULL CODE Discharge to TCU for further PT and pulmonary treatment. Case and plan d/w Dr. Jak Santamaria MD PGY2 Discharge Exam - Head Exam Head Exam: ATRAUMATIC, NORMAL INSPECTION, NORMOCEPHALIC - Eye Exam Eye Exam: EOMI - ENT Exam ENT Exam: Mucous Membranes Moist - Respiratory Exam Respiratory Exam: Decreased Breath Sounds, Wheezes - Cardiovascular Exam Cardiovascular Exam: +S1, +S2 - GI/Abdominal Exam GI & Abdominal Exam: Normal Bowel Sounds, Soft. absent: Tenderness - Neurological Exam Neurological exam: Alert, CN II-XII Intact, Oriented x3 - Psychiatric Exam Psychiatric exam: Normal Affect, Normal Mood Discharge Plan - Discharge Medications Prescriptions: Azithromycin 500mg/250ML NS [Zithromax 500mg in NS Addvantage] 500 mg IVPB DAILY #5 bag - Follow Up Plan Condition: FAIR Disposition: TRANSF TO SNF Instructions: Exacerbation of COPD (DC) Additional Instructions: d/c pt to TCU Referrals: Jeff Granados MD [Family Provider] - <Lexi Benedict - Last Filed: 04/15/18 18:11> Provider - Provider Date of Admission: 04/11/18 18:30 Attending physician: Columba Guerrero DO Consults: 04/11/18 18:48 Pulmonology Consult Routine Comment: Consulting Provider: Jeff Granados Consulting Physician: Jeff Granados Reason for Consult: COPD EXACERBATION Hospital Course - Lab Results Lab Results: Micro Results 04/11/18 17:00 Blood-Venous Blood Culture - Preliminary NO GROWTH AFTER 4 DAYS 04/11/18 18:00 Sputum Gram Stain - Final 04/11/18 18:00 Sputum Sputum Culture - Final Yeast Species Most Recent Lab Values WBC 10.7 K/uL (4.8-10.8) 04/14/18 05:25 RBC 3.46 Mil/uL (3.80-5.20) L 04/14/18 05:25 Hgb 11.0 g/dL (12.0-16.0) L 04/14/18 05:25 Hct 32.6 % (34.0-47.0) L 04/14/18 05:25 MCV 94.2 fl (81.0-99.0) 04/14/18 05:25 MCH 31.9 pg (27.0-31.0) H 04/14/18 05:25 MCHC 33.8 g/dL (33.0-37.0) 04/14/18 05:25 RDW 15.0 % (11.5-14.5) H 04/14/18 05:25 Plt Count 158 K/uL (130-400) 04/14/18 05:25 MPV 7.0 fl (7.2-11.7) L 04/11/18 17:00 Neut % (Auto) 91.3 % (50.0-75.0) H 04/11/18 17:00 Lymph % (Auto) 1.1 % (20.0-40.0) L 04/11/18 17:00 Kleberg % (Auto) 7.3 % (0.0-10.0) 04/11/18 17:00 Eos % (Auto) 0.1 % (0.0-4.0) 04/11/18 17:00 Baso % (Auto) 0.2 % (0.0-2.0) 04/11/18 17:00 Neut # (Auto) 8.7 K/uL (1.8-7.0) H 04/11/18 17:00 Lymph # (Auto) 0.1 K/uL (1.0-4.3) L 04/11/18 17:00 Kleberg # (Auto) 0.7 K/uL (0.0-0.8) 04/11/18 17:00 Eos # (Auto) 0.0 K/uL (0.0-0.7) 04/11/18 17:00 Baso # (Auto) 0.0 K/uL (0.0-0.2) 04/11/18 17:00 Neutrophils % (Manual) 83 % (42-75) H 04/11/18 17:00 Band Neutrophils % 3 % (0-2) H 04/11/18 17:00 Lymphocytes % (Manual) 5 % (20-50) L 04/11/18 17:00 Monocytes % (Manual) 9 % (0-10) 04/11/18 17:00 Toxic Granulation Present 04/11/18 17:00 Platelet Estimate Normal (NORMAL) 04/11/18 17:00 Hypochromasia (manual) Slight 04/11/18 17:00 Anisocytosis (manual) Slight 04/11/18 17:00 pCO2 66 mm/Hg (35-45) H 04/12/18 13:30 pO2 86 mm/Hg (80-100) 04/12/18 13:30 HCO3 35.3 mmol/L (21-28) H 04/12/18 13:30 ABG pH 7.40 (7.35-7.45) 04/12/18 13:30 ABG Total CO2 42.9 mmol/L (22-28) H 04/12/18 13:30 ABG O2 Saturation 98.3 % (95-98) H 04/12/18 13:30 ABG O2 Content 15.9 ML/dL (15-23) 04/12/18 13:30 ABG Base Excess 13.4 mmol/L (-2.0-3.0) H 04/12/18 13:30 ABG Hemoglobin 11.8 g/dL (11.7-17.4) 04/12/18 13:30 ABG Carboxyhemoglobin 1.7 % (0.5-1.5) H 04/12/18 13:30 POC ABG HHb (Measured) 1.7 % (0.0-5.0) 04/12/18 13:30 ABG Methemoglobin 1.2 % (0.0-3.0) 04/12/18 13:30 ABG O2 Capacity 16.2 mL/dL (16-24) 04/12/18 13:30 Kermit Test Yes 04/12/18 13:30 VBG pH 7.33 (7.32-7.43) 04/11/18 17:15 VBG pCO2 82 mmHg (40-60) H* 04/11/18 17:15 VBG HCO3 33.6 mmol/L 04/11/18 17:15 VBG Total CO2 45.7 mmol/L (22-28) H 04/11/18 17:15 VBG O2 Sat (Calc) 40.5 % (40-65) 04/11/18 17:15 VBG Base Excess 13.4 mmol/L (0.0-2.0) H 04/11/18 17:15 VBG Potassium 4.6 mmol/L (3.6-5.2) 04/11/18 17:15 A-a O2 Difference 88.0 mm/Hg 04/12/18 13:30 Hgb O2 Saturation 95.5 % (95.0-98.0) 04/12/18 13:30 Sodium 135.0 mmol/L (132-148) 04/11/18 17:15 Chloride 95.0 mmol/L (98-107) L 04/11/18 17:15 Glucose 169 mg/dL (65-105) H 04/11/18 17:15 Lactate 2.0 mmol/L (0.7-2.1) 04/11/18 17:15 FiO2 36.0 % 04/12/18 13:30 Crit Value Called To Dmitri elizondo md 04/11/18 17:15 Crit Value Called By [id number] 04/11/18 17:15 Crit Value Read Back Y 04/11/18 17:15 Blood Gas Notified Time 1718 04/11/18 17:15 Sodium 136 mmol/l (132-148) 04/14/18 05:25 Potassium 4.7 MMOL/L (3.6-5.0) 04/14/18 05:25 Chloride 88 mmol/L (98-107) L 04/14/18 05:25 Carbon Dioxide 39 mmol/L (22-30) H 04/14/18 05:25 Anion Gap 14 (10-20) 04/14/18 05:25 BUN 27 mg/dl (7-17) H 04/14/18 05:25 Creatinine 0.6 mg/dl (0.7-1.2) L 04/14/18 05:25 Est GFR ( Amer) > 60 04/14/18 05:25 Est GFR (Non-Af Amer) > 60 04/14/18 05:25 POC Glucose (mg/dL) 185 mg/dL (65-110) H 04/14/18 16:12 Random Glucose 151 mg/dL (65-105) H 04/14/18 05:25 Calcium 8.8 mg/dL (8.4-10.2) 04/14/18 05:25 Total Bilirubin 0.4 mg/dl (0.2-1.3) 04/11/18 17:00 AST 33 U/L (14-36) 04/11/18 17:00 ALT 27 U/L (9-52) 04/11/18 17:00 Alkaline Phosphatase 61 U/L (38-126) 04/11/18 17:00 Troponin I < 0.0120 ng/mL (0.00-0.120) 04/11/18 17:00 Total Protein 6.8 G/DL (6.3-8.2) 04/11/18 17:00 Albumin 4.0 g/dL (3.5-5.0) 04/11/18 17:00 Globulin 2.7 gm/dL (2.2-3.9) 04/11/18 17:00 Albumin/Globulin Ratio 1.5 (1.0-2.1) 04/11/18 17:00 Xyrvw-7-Fqwdqbtkikq 147 mg/dL (83-199) 04/14/18 10:35 Venous Blood Potassium 4.6 mmol/L (3.6-5.2) 04/11/18 17:15 Influenza Typ A,B (EIA) Negative for flu a/b (NEGATIVE) 04/11/18 17:00 Attending/Attestation - Attestation I have personally seen and examined this patient.: Yes I have fully participated in the care of the patient.: Yes I have reviewed all pertinent clinical information, including history, physical exam and plan: Yes Notes (Text): Acute COPD exacerbation HTN Physical Deconditioning cont IV Solumedrol , decrease to 30 q 12 cont Duoneb tx, Daliresp and Azithromycin - discussed case with Dr Granados - rec Bipap q hs - Physical therapy consulted- rec TCU - will d/c to TCU for PT and to continue Pulmonary treatment with IV steroids, and Bipap
== END 2018-04-14 18:25 | DRG 190 ==
LOC: H.ER 16:18 → H.ERHOLD 18:30 → H.TEL 22:34
PROVIDERS: ADMIT Student in an Organized Health Care Education/Training Program; ATTEND Student in an Organized Health Care Education/Training Program
PROC: 5A0945Z Assistance with Respiratory Ventilation, 24-96 Consecutive Hours (ICD-10-PCS; 2018-04-11)
PROC: 3E0234Z Introduction of Serum, Toxoid and Vaccine into Muscle, Percutaneous Approach (ICD-10-PCS; principal; 2018-04-12)
DX: J43.9 Emphysema, unspecified (principal); J96.22 Acute and chronic respiratory failure with hypercapnia; Z99.81 Dependence on supplemental oxygen; G25.81 Restless legs syndrome; I10 Essential (primary) hypertension; Z85.21 Personal history of malignant neoplasm of larynx; I27.20 Pulmonary hypertension, unspecified; Z23 Encounter for immunization; E78.00 Pure hypercholesterolemia, unspecified; Z87.891 Personal history of nicotine dependence

== ENCOUNTER 2018-04-14 14:53 | Inpatient (IN) | payer OTHER ==
[2018-04-14 17:31] VITALS: BMI 21.0
[2018-04-14] MEDS: Albuterol-Ipratrop 3 mg / 0.5 (3 ml) UD INH SCH (19:31)
[2018-04-14] MEDS: MethylPREDNISolone 40 mg Vial IVP SCH (21:35)
[2018-04-15] MEDS: Albuterol-Ipratrop 3 mg / 0.5 (3 ml) UD INH SCH ×4 (07:02→20:02)
[2018-04-15] MEDS: MethylPREDNISolone 40 mg Vial IVP SCH ×2 (08:43→21:19)
[2018-04-15] MEDS: Enoxaparin 40 mg Syringe SC SCH (08:43)
[2018-04-15] MEDS: Azithromycin 500 MG in Sodium Chloride 0.9% 250 ML IVPB SCH (11:03)
[2018-04-15] MEDS ORDERED: Simethicone 80 mg Chewtab PO PRN (11:08)
--- NOTE | 2018-04-15 14:01 | CP.PCM.HP ---
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 Now admitted to TCU for PT and pulmonary support. Present on Admission - Present on Admission Any Indicators Present on Admission: No Urinary Catheter: No Review of Systems - Cardiovascular Cardiovascular: absent: Chest Pain - Respiratory Respiratory: Dyspnea, Wheezing - Gastrointestinal Gastrointestinal: absent: Abdominal Pain - Musculoskeletal Musculoskeletal: Abnormal Gait (cane) Past Patient History - Past Medical History & Family History Past Medical History?: Yes - Past Social History Smoking Status: Former Smoker Alcohol: None Drugs: Denies Home Situation {Lives}: With Family - CARDIAC Hx Hypercholesterolemia: Yes Hx Hypertension: Yes - PULMONARY Hx Chronic Obstructive Pulmonary Disease (COPD): Yes (USES O2 AT NIGHT) Hx Emphysema: Yes Hx Pneumonia: Yes - NEUROLOGICAL Other/Comment: restless leg syndrome - HEENT Hx HEENT Problems: No - RENAL Hx Chronic Kidney Disease: No - ENDOCRINE/METABOLIC Hx Endocrine Disorders: No - HEMATOLOGICAL/ONCOLOGICAL 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) - INTEGUMENTARY Hx Dermatological Problems: No - MUSCULOSKELETAL/RHEUMATOLOGICAL Hx Arthritis: Yes Hx Back Pain: Yes Hx Falls: No - GASTROINTESTINAL Hx Gastroesophageal Reflux: Yes Hx Ulcer: Yes - GENITOURINARY/GYNECOLOGICAL Hx Genitourinary Disorders: No - PSYCHIATRIC Hx Psychophysiologic Disorder: No Hx Substance Use: No - SURGICAL HISTORY Hx Surgeries: Yes Other/Comment: excision of vocal cord tumor - ANESTHESIA Hx Anesthesia: No Hx Anesthesia Reactions: No Hx Malignant Hyperthermia: No Has any member of the family had a problem w/ anesthesia?: No Meds Allergies/Adverse Reactions: Allergies Allergy/AdvReac Type Severity Reaction Status Date / Time No Known Allergies Allergy Verified 04/14/18 17:31 Physical Exam - Constitutional Appears: No Acute Distress - Eye Exam Eye Exam: EOMI - ENT Exam ENT Exam: Mucous Membranes Moist - Respiratory Exam Respiratory Exam: absent: Wheezes, Respiratory Distress - Cardiovascular Exam Cardiovascular Exam: REGULAR RHYTHM, +S1, +S2 - GI/Abdominal Exam GI & Abdominal Exam: Normal Bowel Sounds, Soft. 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 Plan: Abnormal gait -Pt ambulates with help of cane -PT for strengthening and gait stabilization Acute on Chronic COPD exacerbation - Pulm: Dr. Granados: pulmonary rehab. Tapered methylprednisolone 20 mg q12H, roflumilast 500 mcg od, Aerosol therapy to QID, albuterol Q4 PRN. - VQ lung scan d/t pulm htn on prior ECHO: negative - ABG: NPPV with BiPAP QHS - Azithromycin 500 mg IV daily for COPD exacerbation - alpha 1 AT: 147 HTN - Losartan for Benicar DVT ppx - Lovenox 40 mg SC daily FULL CODE Case and plan d/w Dr. Cesar Santamaria MD PGY2 <Columba Guerrero - Last Filed: 04/15/18 16:14> Results - Vital Signs Recent Vital Signs: Last Vital Signs Temp 98.2 F 04/15/18 07:57 Pulse 76 04/15/18 08:43 Resp 18 04/15/18 07:57 BP 159/72 H 04/15/18 08:43 Pulse Ox 95 04/15/18 07:57 - Labs Labs: Laboratory Results - last 24 hr 04/14/18 04/15/18 04/15/18 20:55 05:43 10:26 POC Glucose (mg/dL) 163 H 133 H 166 H Attending/Attestation - Attestation I have personally seen and examined this patient.: Yes I have fully participated in the care of the patient.: Yes I have reviewed all pertinent clinical information: Yes Notes (Text): 04/15/18 16:14 Agree with findings and plan as above.
[2018-04-15] MEDS ORDERED: methylPREDNISolone 20 MG in Sodium Chloride 0.9% 50 ML IV SCH (21:00)
[2018-04-16] MEDS: Albuterol 0.083% Inhal Sol (2.5 mg/3 mL) UD INH PRN (01:55)
[2018-04-16] MEDS: Albuterol-Ipratrop 3 mg / 0.5 (3 ml) UD INH SCH ×4 (07:03→19:46)
[2018-04-16] MEDS: Azithromycin 500 MG in Sodium Chloride 0.9% 250 ML IVPB SCH (09:23)
[2018-04-16] MEDS: Enoxaparin 40 mg Syringe SC SCH (09:24)
[2018-04-16] MEDS: MethylPREDNISolone 40 mg Vial IVP SCH ×2 (09:29→22:24)
[2018-04-16 11:17] LABS: BLOOD UREA NITROGEN 24 mg/dl (7-17); CALCIUM 8.7 mg/dL (8.4-10.2); GFR NON-AFRICAN AMERICAN > 60
--- NOTE | 2018-04-16 12:10 | CP.PCM.CON ---
History of Present Illness - History of Present Illness History of Present Illness: This 82 year old female, a former cigarette smoker with severe COPD was admitted to hospital with acute on chronic hypercapnic/hypoxemic respiratory failure. She was initially seen on consultation at that time and treated with aerosol therapy, steroid therapy and NPPV using BiPAP mask ventilation. She did have a small volume of mucoid sputum expectoration as her acute illness was improving. She improved well enough for discharge to sub-acute medicine for continued treatment and physical therapy. Review of Systems - Review of Systems All systems: reviewed and no additional remarkable complaints except - Constitutional Constitutional: Fatigue, Weakness - EENT Nose/Mouth/Throat: Hoarsness - Respiratory Respiratory: Dyspnea, Wheezing - Neurological Neurological: Restless Legs Past Patient History - Past Medical History & Family History Past Medical History?: Yes - Past Social History Smoking Status: Former Smoker Chewing Tobacco Use: No Cigar Use: No Alcohol: None Drugs: Denies Home Situation {Lives}: With Family - CARDIAC Hx Hypercholesterolemia: Yes Hx Hypertension: Yes - PULMONARY Hx Chronic Obstructive Pulmonary Disease (COPD): Yes (USES O2 AT NIGHT) Hx Emphysema: Yes Hx Pneumonia: Yes - NEUROLOGICAL Other/Comment: restless leg syndrome - HEENT Other/Comment: Vocal cord cancer - RENAL Hx Chronic Kidney Disease: No - ENDOCRINE/METABOLIC Hx Endocrine Disorders: No - HEMATOLOGICAL/ONCOLOGICAL 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) - INTEGUMENTARY Hx Dermatological Problems: No - MUSCULOSKELETAL/RHEUMATOLOGICAL Hx Arthritis: Yes Hx Back Pain: Yes Hx Falls: No - GASTROINTESTINAL Hx Gastroesophageal Reflux: Yes Hx Ulcer: Yes - GENITOURINARY/GYNECOLOGICAL Hx Genitourinary Disorders: No - PSYCHIATRIC Hx Psychophysiologic Disorder: No Hx Substance Use: No - SURGICAL HISTORY Hx Surgeries: Yes Other/Comment: excision of vocal cord tumor - ANESTHESIA Hx Anesthesia: No Hx Anesthesia Reactions: No Hx Malignant Hyperthermia: No Has any member of the family had a problem w/ anesthesia?: No Meds Allergies/Adverse Reactions: Allergies Allergy/AdvReac Type Severity Reaction Status Date / Time No Known Allergies Allergy Verified 04/14/18 17:31 - Medications Medications: Current Medications Albuterol Sulfate (Albuterol 0.083% Inhal Deborah (2.5 Mg/3 Ml) Ud) 2.5 mg INH RQ4 PRN PRN Reason: Shortness of Breath Last Admin: 04/16/18 01:55 Dose: 2.5 mg Albuterol/Ipratropium (Duoneb 3 Mg/0.5 Mg (3 Ml) Ud) 3 ml INH RQID [facility] Last Admin: 04/16/18 11:00 Dose: 3 ml Atorvastatin Calcium (Lipitor) 10 mg PO DAILY [facility] Last Admin: 04/16/18 09:24 Dose: 10 mg Enoxaparin Sodium (Lovenox) 40 mg SC DAILY [facility]; Protocol Last Admin: 04/16/18 09:24 Dose: 40 mg Azithromycin 500 mg/ Sodium (Chloride) 250 mls @ 250 mls/hr IVPB DAILY [facility] Last Admin: 04/16/18 09:23 Dose: 250 mls/hr Losartan Potassium (Cozaar) 100 mg PO DAILY [facility] Last Admin: 04/16/18 09:25 Dose: 100 mg Methylprednisolone (Solu-Medrol) 20 mg IVP Q12H [facility] Last Admin: 04/16/18 09:29 Dose: 20 mg Pramipexole Dihydrochloride (Mirapex) 0.5 mg PO HS [facility] Last Admin: 04/15/18 21:19 Dose: 0.5 mg Roflumilast (Daliresp) 500 mcg PO DAILY [facility] Last Admin: 04/16/18 09:25 Dose: 500 mcg Simethicone (Mylicon Chew Tab) 80 mg PO [facility] PRN PRN Reason: Flatulence Physical Exam - Additional Findings Additional findings: Thin, well developed female seated on the edge of her bed. Voice is mildly hoarse, speech is fluent, memory is intact. Neck is supple and trachea midline, no visible JVD, no carotid bruit. Pharynx is pink and moist w/o exudate. Nares are patent bilaterally w/o bleeding. No palpable lymphadenopathy. No dullness to percussion, both hemidiaphragms displaced caudally. Breath sounds are markedly diminished bilaterally. Dry rales in bases bilaterally, prolonged expiratory phase w/o audible wheezing. No bronchial breath sounds, no egophony. Occasional rhonchi in dependant region s. Heart sounds are very distant, rhythm is regular. Abdomen is soft and non-tender with normal bowel sounds. No dependant edema of the lower extremities, no cyanosis or clubbing. Results - Vital Signs Recent Vital Signs: Last Vital Signs Temp 98.1 F 04/16/18 10:16 Pulse 75 04/16/18 10:16 Resp 20 04/16/18 10:16 BP 149/67 04/16/18 10:16 Pulse Ox 95 04/16/18 10:16 - Labs Result Diagrams: 04/16/18 11:03 Labs: Laboratory Results - last 24 hr 04/15/18 04/15/18 04/16/18 16:39 20:51 05:44 Sodium Potassium Chloride Carbon Dioxide Anion Gap BUN Creatinine Est GFR ( Amer) Est GFR (Non-Af Amer) POC Glucose (mg/dL) 145 H 114 H 135 H Random Glucose Calcium 04/16/18 04/16/18 11:03 11:23 Sodium 135 Potassium 3.8 Chloride 95 L Carbon Dioxide 36 H Anion Gap 8 L BUN 24 H Creatinine 0.6 L Est GFR ( Amer) > 60 Est GFR (Non-Af Amer) > 60 POC Glucose (mg/dL) 94 Random Glucose 105 Calcium 8.7 Assessment & Plan (1) Acute on chronic respiratory failure with hypercapnia Status: Acute Priority: High (2) COPD with acute exacerbation Status: Acute Priority: High (3) Hypertension Status: Chronic Priority: High (4) Pulmonary hypertension Status: Chronic Priority: High - Assessment and Plan (Free Text) Plan: Continue aerosol therapies and supplemental steroids in decreasing doseage. Supplemental oxygen with NPPV using BiPAP mask as tolerated by the patient. Roflumilast at 500mcg PO OD. Physical therapy. - Date & Time Date: 04/16/18 Time: 12:10
[2018-04-17] MEDS: Albuterol-Ipratrop 3 mg / 0.5 (3 ml) UD INH SCH ×4 (07:25→19:24)
[2018-04-17] MEDS: MethylPREDNISolone 40 mg Vial IVP SCH ×2 (08:48→21:02)
[2018-04-17] MEDS: Enoxaparin 40 mg Syringe SC SCH (08:48)
[2018-04-17] MEDS: Azithromycin 500 MG in Sodium Chloride 0.9% 250 ML IVPB SCH (08:49)
[2018-04-18] MEDS: Albuterol 0.083% Inhal Sol (2.5 mg/3 mL) UD INH PRN ×2 (02:30→10:30)
[2018-04-18] MEDS: Albuterol-Ipratrop 3 mg / 0.5 (3 ml) UD INH SCH ×4 (07:33→19:21)
[2018-04-18] MEDS: Enoxaparin 40 mg Syringe SC SCH (09:11)
[2018-04-18] MEDS: MethylPREDNISolone 40 mg Vial IVP SCH (09:11)
[2018-04-18] MEDS: Azithromycin 500 MG in Sodium Chloride 0.9% 250 ML IVPB SCH (09:13)
--- NOTE | 2018-04-18 11:43 | CP.PCM.PN ---
Subjective - Date & Time of Evaluation Date of Evaluation: 04/18/18 Time of Evaluation: 11:43 - Subjective Subjective: Progressing well on the current regimen. Will follow up with repeat chest x-ray in the AM. Objective - Vital Signs/Intake and Output Vital Signs (last 24 hours): Temp Pulse Resp BP Pulse Ox 98.7 F 75 18 113/57 L 98 04/18/18 08:06 04/18/18 09:10 04/18/18 08:06 04/18/18 09:10 04/18/18 08:06 - Medications Medications: Current Medications Albuterol Sulfate (Albuterol 0.083% Inhal Deborah (2.5 Mg/3 Ml) Ud) 2.5 mg INH RQ4 PRN PRN Reason: Shortness of Breath Last Admin: 04/18/18 10:30 Dose: 2.5 mg Albuterol/Ipratropium (Duoneb 3 Mg/0.5 Mg (3 Ml) Ud) 3 ml INH RQID [facility] Last Admin: 04/18/18 11:08 Dose: 3 ml Atorvastatin Calcium (Lipitor) 10 mg PO DAILY [facility] Last Admin: 04/18/18 09:10 Dose: 10 mg Azithromycin 500 mg/ Sodium (Chloride) 250 mls @ 250 mls/hr IVPB DAILY [facility]; Protocol Stop: 04/19/18 23:59 Losartan Potassium (Cozaar) 100 mg PO DAILY [facility] Last Admin: 04/18/18 09:10 Dose: 100 mg Methylprednisolone (Solu-Medrol) 20 mg IVP Q12H [facility] Last Admin: 04/18/18 09:11 Dose: 20 mg Pramipexole Dihydrochloride (Mirapex) 0.5 mg PO HS [facility] Last Admin: 04/17/18 21:02 Dose: 0.5 mg Roflumilast (Daliresp) 500 mcg PO DAILY [facility] Last Admin: 04/18/18 09:10 Dose: 500 mcg Simethicone (Mylicon Chew Tab) 80 mg PO [facility] PRN PRN Reason: Flatulence - Labs Labs: 04/16/18 11:03 Assessment and Plan (1) Acute on chronic respiratory failure with hypercapnia Status: Acute (2) COPD with acute exacerbation Status: Acute (3) Hypertension Status: Chronic (4) Pulmonary hypertension Status: Chronic
[2018-04-19] MEDS: Albuterol 0.083% Inhal Sol (2.5 mg/3 mL) UD INH PRN (00:32)
[2018-04-19] MEDS: Albuterol-Ipratrop 3 mg / 0.5 (3 ml) UD INH SCH ×4 (07:35→19:50)
[2018-04-19] MEDS: Enoxaparin 40 mg Syringe SC SCH (08:48)
[2018-04-19] MEDS ORDERED: Azithromycin 250 MG in Sodium Chloride 0.9% 250 ML IVPB SCH (09:00)
[2018-04-19] MEDS ORDERED: Azithromycin 500 MG in Sodium Chloride 0.9% 250 ML IVPB SCH (09:00)
--- NOTE | 2018-04-19 17:56 | RAD ---
Date of service: 04/19/2018 HISTORY: Shortness of breath. COMPARISON: 04/11/2018. TECHNIQUE: Chest PA and lateral FINDINGS: LUNGS: Hyperinflation, manifestations of COPD. No active pulmonary disease. PLEURA: No significant pleural effusion identified. No pneumothorax apparent. CARDIOVASCULAR: No radiographic findings to suggest acute or significant cardiovascular disease. Atherosclerotic calcifications identified primarily aortic arch. No pulmonary vascular congestion. OSSEOUS STRUCTURES: No significant abnormalities. VISUALIZED UPPER ABDOMEN: Normal. OTHER FINDINGS: None. IMPRESSION: No active disease. No significant interval change compared to the prior examination(s).
--- NOTE | 2018-04-19 18:11 | CP.PCM.PN ---
Subjective - Date & Time of Evaluation Date of Evaluation: 04/19/18 Time of Evaluation: 15:30 - Subjective Subjective: Patient seen and examined. Denied any complaint Objective - Vital Signs/Intake and Output Vital Signs (last 24 hours): Temp Pulse Resp BP Pulse Ox 98.1 F 74 20 151/84 H 94 L 04/19/18 16:28 04/19/18 16:28 04/19/18 16:28 04/19/18 16:28 04/19/18 16:28 - Medications Medications: Current Medications Albuterol Sulfate (Albuterol 0.083% Inhal Deborah (2.5 Mg/3 Ml) Ud) 2.5 mg INH RQ4 PRN PRN Reason: Shortness of Breath Last Admin: 04/19/18 00:32 Dose: 2.5 mg Albuterol/Ipratropium (Duoneb 3 Mg/0.5 Mg (3 Ml) Ud) 3 ml INH RQID [facility] Last Admin: 04/19/18 16:02 Dose: Not Given Atorvastatin Calcium (Lipitor) 10 mg PO DAILY [facility] Last Admin: 04/19/18 08:48 Dose: 10 mg Enoxaparin Sodium (Lovenox) 40 mg SC DAILY [facility]; Protocol Last Admin: 04/19/18 08:48 Dose: 40 mg Azithromycin 500 mg/ Sodium (Chloride) 250 mls @ 250 mls/hr IVPB DAILY [facility]; Protocol Stop: 04/19/18 23:59 Last Admin: 04/19/18 08:49 Dose: 250 mls/hr Losartan Potassium (Cozaar) 100 mg PO DAILY [facility] Last Admin: 04/19/18 08:47 Dose: 100 mg Methylprednisolone (Medrol) 16 mg PO DAILY [facility] Last Admin: 04/19/18 08:48 Dose: 16 mg Pramipexole Dihydrochloride (Mirapex) 0.5 mg PO HS [facility] Last Admin: 04/18/18 21:11 Dose: 0.5 mg Roflumilast (Daliresp) 500 mcg PO DAILY [facility] Last Admin: 04/19/18 08:48 Dose: 500 mcg Simethicone (Mylicon Chew Tab) 80 mg PO HS PRN PRN Reason: Flatulence - Labs Labs: 04/16/18 11:03 - Constitutional Appears: No Acute Distress - Head Exam Head Exam: ATRAUMATIC - Eye Exam Eye Exam: absent: Scleral icterus - ENT Exam ENT Exam: Mucous Membranes Moist - Neck Exam Neck Exam: absent: Meningismus - Respiratory Exam Respiratory Exam: absent: Rales, Rhonchi, Wheezes, Respiratory Distress - Cardiovascular Exam Cardiovascular Exam: REGULAR RHYTHM, +S1, +S2 - GI/Abdominal Exam GI & Abdominal Exam: Soft. absent: Tenderness - Rectal Exam Rectal Exam: Deferred - Neurological Exam Neurological Exam: Alert, Oriented x3 - Psychiatric Exam Psychiatric exam: Normal Affect - Skin Skin Exam: Dry, Intact Assessment and Plan - Assessment and Plan (Free Text) Assessment: 82 yo female with history of COPD, HTN and Laryngeal cancer admitted to TCU for PT and pulmonary rehab. 1. Abnormal gait continue PT/OT 2. COPD exacerbation continue Methylprednisolone 20 mg IV q12H, continue Azithromycin [address] Granados on pulmonology consult 3. HTN BP stable continue Losartan 4. DVT prophylaxis continue Lovenox 40 mg SC daily
[2018-04-20] MEDS: Albuterol-Ipratrop 3 mg / 0.5 (3 ml) UD INH SCH ×4 (07:33→19:28)
[2018-04-20] MEDS: Enoxaparin 40 mg Syringe SC SCH (08:49)
--- NOTE | 2018-04-20 11:13 | CP.PCM.PN ---
Subjective - Date & Time of Evaluation Date of Evaluation: 04/20/18 Time of Evaluation: 11:11 - Subjective Subjective: Patient has done well with present regimen which includes aerosol therapy, steroids, roflumilast and NPPV using BiPAP. She has been awake and alert, breathing comfortably at rest. Still has AGOSTO as expected. Has been using BiPAP mask NPPV overnight for chronic CO2 retention with supplemental oxygen. Vital signs have been stable and she remains afebrile. No dependant edema, no cyanosis. Neck is supple and trachea is midline. Hyper-resonance to chest percussion noted bilaterally. Both giovana-diaphragms are displaced caudally. Breath sounds are diminished in both lungs. Scattered dry rales are present in the lower lobes without wheezing. Heart sounds are distant and rhythm is regular. Chronic hypercapnic respiratory failure secondary to COPD. Plan for discharge to home using supplemental O2 at 2LPM. Will require overnight BiPAP ventilation at I-10, E-5, with O2 at 2LPM. All maintenance medications will remain the same. PO methylprednisolone has been decreased to 12MG daily and will be tapered slowly at home. Repeat arterial blood gas has been requested. (Last ABG on 04/12/18 PaCO2 66, PaO2 86, pH 7.40) Objective - Vital Signs/Intake and Output Vital Signs (last 24 hours): Temp Pulse Resp BP Pulse Ox 98.4 F 69 18 142/61 98 04/20/18 08:09 04/20/18 08:49 04/20/18 08:09 04/20/18 08:49 04/20/18 08:09 - Medications Medications: Current Medications Albuterol Sulfate (Albuterol 0.083% Inhal Deborah (2.5 Mg/3 Ml) Ud) 2.5 mg INH RQ4 PRN PRN Reason: Shortness of Breath Last Admin: 04/19/18 00:32 Dose: 2.5 mg Albuterol/Ipratropium (Duoneb 3 Mg/0.5 Mg (3 Ml) Ud) 3 ml INH RQID [facility] Last Admin: 04/20/18 07:33 Dose: 3 ml Atorvastatin Calcium (Lipitor) 10 mg PO DAILY [facility] Last Admin: 04/20/18 08:49 Dose: 10 mg Enoxaparin Sodium (Lovenox) 40 mg SC DAILY [facility]; Protocol Last Admin: 04/20/18 08:49 Dose: 40 mg Losartan Potassium (Cozaar) 100 mg PO DAILY [facility] Last Admin: 04/20/18 08:49 Dose: 100 mg Methylprednisolone (Medrol) 16 mg PO DAILY [facility] Last Admin: 04/20/18 08:49 Dose: 16 mg Pramipexole Dihydrochloride (Mirapex) 0.5 mg PO HS [facility] Last Admin: 04/19/18 21:32 Dose: 0.5 mg Roflumilast (Daliresp) 500 mcg PO DAILY [facility] Last Admin: 04/20/18 08:48 Dose: 500 mcg Simethicone (Mylicon Chew Tab) 80 mg PO [facility] PRN PRN Reason: Flatulence - Labs Labs: 04/16/18 11:03 Assessment and Plan (1) COPD with acute exacerbation Status: Acute (2) Hypertension Status: Chronic (3) Pulmonary hypertension Status: Chronic (4) Chronic hypercapnic respiratory failure Status: Chronic
[2018-04-20 12:04] LABS: ABG ALLEN TEST YES; ARTERIAL BLOOD GAS HCO3 33.7 mmol/L (21-28); ARTERIAL BLOOD GAS O2 CAPACITY 16.4 mL/dL (16-24); ARTERIAL BLOOD GAS O2 CONTENT 15.4 ML/dL (15-23); ARTERIAL BLOOD GAS O2 SAT 94.1 % (95-98); ARTERIAL BLOOD GAS PCO2 52 mm/Hg (35-45); ARTERIAL BLOOD GAS PH 7.46 (7.35-7.45); ARTERIAL BLOOD GAS PO2 57 mm/Hg (80-100); ARTERIAL BLOOD GAS TCO2 38.6 mmol/L (22-28)
[2018-04-21] MEDS: Albuterol-Ipratrop 3 mg / 0.5 (3 ml) UD INH SCH ×4 (07:38→19:58)
[2018-04-21] MEDS: Enoxaparin 40 mg Syringe SC SCH (08:49)
--- NOTE | 2018-04-21 11:20 | CP.PCM.PN ---
Subjective - Date & Time of Evaluation Date of Evaluation: 04/21/18 Time of Evaluation: 11:18 - Subjective Subjective: Follow up ABG reviewed; oxygenation and pH okay. PaCO2 still elevated, but improved with use of BiPAP overnight. Continues to progress with current regimen. Plan is for discharge Wednesday AM. Continue present medical treatments. Objective - Vital Signs/Intake and Output Vital Signs (last 24 hours): Temp Pulse Resp BP Pulse Ox 98.1 F 75 18 131/62 96 04/21/18 08:24 04/21/18 08:24 04/21/18 08:24 04/21/18 08:24 04/21/18 08:24 - Medications Medications: Current Medications Albuterol Sulfate (Albuterol 0.083% Inhal Deborah (2.5 Mg/3 Ml) Ud) 2.5 mg INH RQ4 PRN PRN Reason: Shortness of Breath Last Admin: 04/19/18 00:32 Dose: 2.5 mg Albuterol/Ipratropium (Duoneb 3 Mg/0.5 Mg (3 Ml) Ud) 3 ml INH RQID [facility] Last Admin: 04/21/18 07:38 Dose: 3 ml Atorvastatin Calcium (Lipitor) 10 mg PO DAILY [facility] Last Admin: 04/21/18 08:51 Dose: 10 mg Enoxaparin Sodium (Lovenox) 40 mg SC DAILY [facility]; Protocol Last Admin: 04/21/18 08:49 Dose: 40 mg Losartan Potassium (Cozaar) 100 mg PO DAILY [facility] Last Admin: 04/21/18 08:50 Dose: 100 mg Methylprednisolone (Medrol) 12 mg PO DAILY [facility] Last Admin: 04/21/18 08:51 Dose: 12 mg Pramipexole Dihydrochloride (Mirapex) 0.5 mg PO HS [facility] Last Admin: 04/20/18 21:18 Dose: 0.5 mg Roflumilast (Daliresp) 500 mcg PO DAILY [facility] Last Admin: 04/21/18 08:50 Dose: 500 mcg Simethicone (Mylicon Chew Tab) 80 mg PO HS PRN PRN Reason: Flatulence - Labs Labs: 04/16/18 11:03 Assessment and Plan (1) COPD with acute exacerbation Status: Acute (2) Hypertension Status: Chronic (3) Pulmonary hypertension Status: Chronic (4) Chronic hypercapnic respiratory failure Status: Chronic
--- NOTE | 2018-04-21 17:14 | CP.PCM.PN ---
Subjective - Date & Time of Evaluation Date of Evaluation: 04/21/18 Time of Evaluation: 14:30 - Subjective Subjective: Patient seen and examined. Denied any complaint Objective - Vital Signs/Intake and Output Vital Signs (last 24 hours): Temp Pulse Resp BP Pulse Ox 98.6 F 81 20 117/58 L 94 L 04/21/18 16:54 04/21/18 16:54 04/21/18 16:54 04/21/18 16:54 04/21/18 16:54 - Medications Medications: Current Medications Albuterol Sulfate (Albuterol 0.083% Inhal Deborah (2.5 Mg/3 Ml) Ud) 2.5 mg INH RQ4 PRN PRN Reason: Shortness of Breath Last Admin: 04/19/18 00:32 Dose: 2.5 mg Albuterol/Ipratropium (Duoneb 3 Mg/0.5 Mg (3 Ml) Ud) 3 ml INH RQID [facility] Last Admin: 04/21/18 15:22 Dose: 3 ml Atorvastatin Calcium (Lipitor) 10 mg PO DAILY [facility] Last Admin: 04/21/18 08:51 Dose: 10 mg Enoxaparin Sodium (Lovenox) 40 mg SC DAILY [facility]; Protocol Last Admin: 04/21/18 08:49 Dose: 40 mg Losartan Potassium (Cozaar) 100 mg PO DAILY [facility] Last Admin: 04/21/18 08:50 Dose: 100 mg Methylprednisolone (Medrol) 12 mg PO DAILY [facility] Last Admin: 04/21/18 08:51 Dose: 12 mg Pramipexole Dihydrochloride (Mirapex) 0.5 mg PO [facility] Last Admin: 04/20/18 21:18 Dose: 0.5 mg Roflumilast (Daliresp) 500 mcg PO DAILY [facility] Last Admin: 04/21/18 08:50 Dose: 500 mcg Simethicone (Mylicon Chew Tab) 80 mg PO [facility] PRN PRN Reason: Flatulence - Labs Labs: 04/16/18 11:03 - Constitutional Appears: No Acute Distress - Head Exam Head Exam: ATRAUMATIC - Eye Exam Eye Exam: absent: Scleral icterus - ENT Exam ENT Exam: Mucous Membranes Moist - Neck Exam Neck Exam: absent: Meningismus - Respiratory Exam Respiratory Exam: absent: Rales, Rhonchi, Wheezes, Respiratory Distress - Cardiovascular Exam Cardiovascular Exam: REGULAR RHYTHM, +S1, +S2 - GI/Abdominal Exam GI & Abdominal Exam: Soft. absent: Tenderness - Rectal Exam Rectal Exam: Deferred - Neurological Exam Neurological Exam: Alert, Oriented x3 - Psychiatric Exam Psychiatric exam: Normal Affect - Skin Skin Exam: Dry, Intact Assessment and Plan - Assessment and Plan (Free Text) Assessment: 82 yo female with history of COPD, HTN and Laryngeal cancer admitted initially because of COPD exacerbation. She was transferred to TCU for further management of her COPD and therapy. 1. COPD exacerbation Medrol tapered to12mg PO daily continue Roflumilast continue Bipap at bedtime latest ABG still with hypercapnia but improving 2. HTN BP stable continue Losartan 3. DVT prophylaxis continue Lovenox 40 mg SC daily
[2018-04-22] MEDS: Albuterol-Ipratrop 3 mg / 0.5 (3 ml) UD INH SCH ×4 (07:37→19:29)
[2018-04-22] MEDS: Enoxaparin 40 mg Syringe SC SCH (08:46)
--- NOTE | 2018-04-22 13:56 | CP.PCM.PN ---
Subjective - Date & Time of Evaluation Date of Evaluation: 04/22/18 Time of Evaluation: 13:50 - Subjective Subjective: Patient has progressed as expected with current therapy. She continues to have dyspnea on exertion which is multifactorial (COPD and pul monary hypertension). She has been using supplemental oxygen via nasal canula during the daytime and also attached to her NPPV mask at night. She did have overnight SpO2 recording which naturally showed adequate oxygenation while wearing her nasal canula. Her arterial blood gases have repeatedly shown hypercapnic respiratory failure for which BiPAP mask ventilation has been prescribed. There are no clinical findings or history suggestive of obstructive sleep apnea. Objective - Vital Signs/Intake and Output Vital Signs (last 24 hours): Temp Pulse Resp BP Pulse Ox 97.8 F 69 18 119/53 L 100 04/22/18 08:25 04/22/18 08:25 04/22/18 08:25 04/22/18 08:25 04/22/18 08:25 - Medications Medications: Current Medications Albuterol Sulfate (Albuterol 0.083% Inhal Deborah (2.5 Mg/3 Ml) Ud) 2.5 mg INH RQ4 PRN PRN Reason: Shortness of Breath Last Admin: 04/19/18 00:32 Dose: 2.5 mg Albuterol/Ipratropium (Duoneb 3 Mg/0.5 Mg (3 Ml) Ud) 3 ml INH RQID [facility] Last Admin: 04/22/18 11:45 Dose: 3 ml Atorvastatin Calcium (Lipitor) 10 mg PO DAILY [facility] Last Admin: 04/22/18 08:46 Dose: 10 mg Losartan Potassium (Cozaar) 100 mg PO DAILY [facility] Last Admin: 04/21/18 08:50 Dose: 100 mg Methylprednisolone (Medrol) 12 mg PO DAILY [facility] Last Admin: 04/22/18 08:46 Dose: 12 mg Pramipexole Dihydrochloride (Mirapex) 0.5 mg PO HS [facility] Last Admin: 04/21/18 21:49 Dose: 0.5 mg Roflumilast (Daliresp) 500 mcg PO DAILY [facility] Last Admin: 04/22/18 08:46 Dose: 500 mcg Simethicone (Mylicon Chew Tab) 80 mg PO [facility] PRN PRN Reason: Flatulence - Labs Labs: 04/16/18 11:03 Assessment and Plan (1) COPD with acute exacerbation Status: Acute (2) Hypertension Status: Chronic (3) Pulmonary hypertension Status: Chronic (4) Chronic hypercapnic respiratory failure Status: Chronic
[2018-04-23] MEDS: Albuterol-Ipratrop 3 mg / 0.5 (3 ml) UD INH SCH ×2 (08:16→11:50)
[2018-04-23 08:17] VITALS: PULSE 74; RESP 20; TEMP 98; O2SAT 96
[2018-04-23 10:16] VITALS: BP 151/52
--- NOTE | 2018-04-23 10:51 | CP.PCM.DIS ---
Provider - Provider Date of Admission: 04/14/18 18:30 Attending physician: Lexi Benedict MD Consults: 04/14/18 18:42 Pulmonology Consult Routine Comment: Consulting Provider: Jeff Granados Consulting Physician: Jeff Granados Reason for Consult: COPD exacerbation Time Spent in preparation of Discharge (in minutes): 30 Diagnosis - Discharge Diagnosis (1) Chronic hypercapnic respiratory failure Status: Chronic (2) Pulmonary hypertension Status: Chronic Priority: High Hospital Course - Lab Results Lab Results: Most Recent Lab Values pCO2 52 mm/Hg (35-45) H 04/20/18 11:55 pO2 57 mm/Hg (80-100) L 04/20/18 11:55 HCO3 33.7 mmol/L (21-28) H 04/20/18 11:55 ABG pH 7.46 (7.35-7.45) H 04/20/18 11:55 ABG Total CO2 38.6 mmol/L (22-28) H 04/20/18 11:55 ABG O2 Saturation 94.1 % (95-98) L 04/20/18 11:55 ABG O2 Content 15.4 ML/dL (15-23) 04/20/18 11:55 ABG Base Excess 11.4 mmol/L (-2.0-3.0) H 04/20/18 11:55 ABG Hemoglobin 12.0 g/dL (11.7-17.4) 04/20/18 11:55 ABG Carboxyhemoglobin 1.6 % (0.5-1.5) H 04/20/18 11:55 POC ABG HHb (Measured) 5.7 % (0.0-5.0) H 04/20/18 11:55 ABG Methemoglobin 1.4 % (0.0-3.0) 04/20/18 11:55 ABG O2 Capacity 16.4 mL/dL (16-24) 04/20/18 11:55 Kermit Test Yes 04/20/18 11:55 A-a O2 Difference 78.0 mm/Hg 04/20/18 11:55 Hgb O2 Saturation 91.3 % (95.0-98.0) L 04/20/18 11:55 FiO2 28.0 % 04/20/18 11:55 Sodium 135 mmol/l (132-148) 04/16/18 11:03 Potassium 3.8 MMOL/L (3.6-5.0) 04/16/18 11:03 Chloride 95 mmol/L (98-107) L 04/16/18 11:03 Carbon Dioxide 36 mmol/L (22-30) H 04/16/18 11:03 Anion Gap 8 (10-20) L 04/16/18 11:03 BUN 24 mg/dl (7-17) H 04/16/18 11:03 Creatinine 0.6 mg/dl (0.7-1.2) L 04/16/18 11:03 Est GFR ( Amer) > 60 04/16/18 11:03 Est GFR (Non-Af Amer) > 60 04/16/18 11:03 POC Glucose (mg/dL) 100 mg/dL (65-110) 04/23/18 05:49 Random Glucose 105 mg/dL (65-105) 04/16/18 11:03 Calcium 8.7 mg/dL (8.4-10.2) 04/16/18 11:03 - Hospital Course Hospital Course: 82 yo female with history of chronic hypercapneic respiratory failure requiring home O2 and NPPV, pulmonary hypertension, COPD, HTN and Laryngeal cancer admitted initially because of COPD exacerbation. She was transferred to TCU for further management of her COPD and therapy. Patient has progressed as expected with current therapy as per Pulmonology and is stable to be discharged home with close follow up with Dr. Granados. Patient discharged with Medrol 12 mg for 2 days and patient has been instructed to call Dr. Granados on Wednesday. Discharge Exam - Head Exam Head Exam: ATRAUMATIC, NORMOCEPHALIC - Eye Exam Eye Exam: EOMI, Normal appearance, PERRL - ENT Exam ENT Exam: Mucous Membranes Moist, Normal Oropharynx - Respiratory Exam Respiratory Exam: Decreased Breath Sounds. absent: Accessory Muscle Use, Respiratory Distress - Cardiovascular Exam Cardiovascular Exam: RRR, +S1, +S2 - GI/Abdominal Exam GI & Abdominal Exam: Normal Bowel Sounds, Soft. absent: Organomegaly, Tenderness - Extremities Exam Extremities exam: normal capillary refill, pedal pulses present - Back Exam Back exam: absent: CVA tenderness (L), CVA tenderness (R) - Neurological Exam Neurological exam: Alert, Oriented x3 - Psychiatric Exam Psychiatric exam: Normal Affect, Normal Mood - Skin Skin Exam: Dry, Warm Discharge Plan - Discharge Medications Prescriptions: Albuterol/Ipratropium [Duoneb 3 mg/0.5 mg (3 ml) UD] 3 ml INH RQID #60 neb Atorvastatin [Lipitor] 10 mg PO DAILY #30 tab Losartan [Cozaar] 50 mg PO DAILY #30 tab methylPREDNISolone [Medrol] 12 mg PO DAILY #30 tab Pramipexole [Mirapex] 0.5 mg PO HS #30 tab Roflumilast [Daliresp] 500 mcg PO DAILY #30 tab - Follow Up Plan Condition: GOOD Disposition: HOME/ ROUTINE Additional Instructions: Take 3 tablets of Medrol Wednesday and 3 tablets on Wednesday, and call Dr. Granados on Wednesday.
--- NOTE | 2018-04-23 11:37 | CP.PCM.PN ---
Subjective - Date & Time of Evaluation Date of Evaluation: 04/23/18 Time of Evaluation: 11:34 - Subjective Subjective: She has done well with the present regimen. Has chronic hypercapnia, compensated, with adequate oxygenation on supplemental 2 LPM. Breath sounds are very much diminished with an occasional expiratory wheeze heard. Medical regimen to continue as noted in discharge summary. Will follow up as outpatient and monitor ventilatory status. Supplemental O2 at home via nasal canula. No NPPV as of yet at home. Objective - Vital Signs/Intake and Output Vital Signs (last 24 hours): Temp Pulse Resp BP Pulse Ox 98.0 F 74 20 151/52 H 96 04/23/18 10:00 04/23/18 10:16 04/23/18 10:00 04/23/18 10:16 04/23/18 10:00 - Medications Medications: Current Medications Albuterol Sulfate (Albuterol 0.083% Inhal Deborah (2.5 Mg/3 Ml) Ud) 2.5 mg INH RQ4 PRN PRN Reason: Shortness of Breath Last Admin: 04/19/18 00:32 Dose: 2.5 mg Albuterol/Ipratropium (Duoneb 3 Mg/0.5 Mg (3 Ml) Ud) 3 ml INH RQID [facility] Last Admin: 04/23/18 08:16 Dose: 3 ml Atorvastatin Calcium (Lipitor) 10 mg PO DAILY [facility] Last Admin: 04/23/18 10:16 Dose: 10 mg Losartan Potassium (Cozaar) 100 mg PO DAILY [facility] Last Admin: 04/23/18 10:16 Dose: 100 mg Methylprednisolone (Medrol) 12 mg PO DAILY [facility] Last Admin: 04/23/18 10:15 Dose: 12 mg Pramipexole Dihydrochloride (Mirapex) 0.5 mg PO HS [facility] Last Admin: 04/22/18 21:02 Dose: 0.5 mg Roflumilast (Daliresp) 500 mcg PO DAILY [facility] Last Admin: 04/23/18 10:16 Dose: 500 mcg Simethicone (Mylicon Chew Tab) 80 mg PO HS PRN PRN Reason: Flatulence - Labs Labs: 04/16/18 11:03 Assessment and Plan (1) COPD with acute exacerbation Status: Acute (2) Hypertension Status: Chronic (3) Pulmonary hypertension Status: Chronic (4) Chronic hypercapnic respiratory failure Status: Chronic
== END 2018-04-23 14:06 | disposition home health service (06) | DRG 190 ==
LOC: H.TCU 18:30
PROVIDERS: ADMIT Internal Medicine; ATTEND Internal Medicine
PROC: 3E0F73Z Introduction of Anti-inflammatory into Respiratory Tract, Via Natural or Artificial Opening (ICD-10-PCS; principal; 2018-04-14)
PROC: 3E0F7GC Introduction of Other Therapeutic Substance into Respiratory Tract, Via Natural or Artificial Opening (ICD-10-PCS; 2018-04-14)
PROC: F07Z9FZ Gait Training/Functional Ambulation Treatment using Assistive, Adaptive, Supportive or Protective Equipment (ICD-10-PCS; 2018-04-14)
PROC: F08Z4FZ Home Management Treatment using Assistive, Adaptive, Supportive or Protective Equipment (ICD-10-PCS; 2018-04-14)
PROC: F07M6FZ Therapeutic Exercise Treatment of Musculoskeletal System - Whole Body using Assistive, Adaptive, Supportive or Protective Equipment (ICD-10-PCS; 2018-04-15)
DX: J44.1 Chronic obstructive pulmonary disease with (acute) exacerbation (principal); J96.22 Acute and chronic respiratory failure with hypercapnia; K21.9 Gastro-esophageal reflux disease without esophagitis; I27.20 Pulmonary hypertension, unspecified; I10 Essential (primary) hypertension; R26.9 Unspecified abnormalities of gait and mobility; E78.00 Pure hypercholesterolemia, unspecified; Z85.21 Personal history of malignant neoplasm of larynx; Z87.01 Personal history of pneumonia (recurrent); Z87.891 Personal history of nicotine dependence; Z99.81 Dependence on supplemental oxygen